=== PATIENT | male | born 1970 | race African-American/Black ===

== ENCOUNTER → 2022-07-03 14:19 | Outpatient (BNVA) | payer OTHER, SELFPAY | PROVIDERS: PCP Nurse Practitioner Family; Visit Provider Nurse Practitioner Family | DX: Z01.818 Encounter for other preprocedural examination (principal) ==

== ENCOUNTER 2022-11-07 10:24 | Outpatient (REF) | payer OTHER, SELFPAY ==
[2022-11-07 11:12] LABS: MANUAL DIFF FLAG NO
[2022-11-07 11:25] LABS: Appearance Urine Clear; Color Urine Yellow; Glucose Urine UA Negative (Negative); Leukocyte Esterase Urine Negative (Negative); Nitrite Urine Negative (Negative); PH 6.5 (5.0-9.0); Specific Gravity - Urine 1.025 (1.005-1.025); UMIC TRIGGER UACC YES; Urine Blood Negative (Negative); Urine Ketones Negative (Negative); Urine Protein 30 (1+) mg/dL (Neg-Trace)
[2022-11-07 11:30] LABS: Bacteria Urine None Seen (None Seen); Hyaline Casts Urine 0-2 /LPF (0-2); RBC Urine 0-2 /HPF (0-2); Squamous Epithelial Cell Urine 0-2 /HPF (0-2); WBC Urine 0-5 /HPF (0-5)
[2022-11-07 11:32] LABS: Basophils Absolute Auto 0.1 X10*3/uL (0.0-0.2); Basophils Percent Auto 2.4 % (0-2); Eosinophils Absolute Auto 0.2 X10*3/uL (0.0-0.4); Eosinophils Percent Auto 6.5 % (0-4); Hematocrit 38.5 % (42.0-52.0); Hemoglobin 12.5 g/dl (14.0-18.0); Lymphocytes Absolute Auto 1.4 X10*3/uL (1.2-4.9); Lymphocytes Percent Auto 41.2 % (20-40); Mean Corpuscular HGB Conc 32.5 g/dl (31.0-36.0); Mean Corpuscular Hemoglobin 23.5 pg (27.0-33.0); Mean Corpuscular Volume 72.4 fL (80.0-98.0); Mean Platelet Volume 9.1 fL (9.4-12.4); Monocytes Absolute Auto 0.3 X10*3/uL (0.1-1.2); Monocytes Percent Auto 7.7 % (2-11); Neutrophils Absolute Auto 1.4 x10*3/uL (2.0-8.3); Neutrophils Percent Auto 42.2 % (45-73); Platelet Count 178 X10*3/uL (160-400); Red Blood Count 5.32 X10*6/uL (4.60-5.80); Red Cell Distribution Width 15.1 % (11.0-16.0); White Blood Count 3.4 X10*3/uL (4.8-10.8)
[2022-11-07 11:59] LABS: Alanine Aminotransferase 62 U/L (0-40); Albumin Level 4.6 g/dL (3.5-5.0); Alkaline Phosphatase 82 U/L (39-117); Anion Gap 16 (12-20); Aspartate Amino Transferase 96 U/L (5-37); Bilirubin Total 0.5 mg/dL (0.0-1.0); Blood Urea Nitrogen 15 mg/dL (9-16); Calcium 9.4 mg/dL (8.4-10.2); Carbon Dioxide 28 mmol/L (22-29); Chloride 105 mmol/L (96-108); Cholesterol 243 mg/dL; Estimated Glomerular Filt Rate > 60; Glucose Fasting 108 mg/dL (60-99); HDL Cholesterol 68 mg/dL; LDL Cholesterol Calculated 108 mg/dl; Potassium 4.4 mmol/L (3.3-5.1); Sodium 145 mmol/L (135-145); Total Protein 8.2 g/dL (6.5-8.0); Triglycerides 337 mg/dL
[2022-11-07 12:15] LABS: Prostate Specific Antigen Scr 2.23 ng/mL (<0.05-4.0); TSH reflex Free T4 0.56 uIU/mL (0.32-4.0)
== END 2022-11-07 10:25 | disposition home or self-care (01) ==
LOC: HO.HMGCLDS 10:24
PROVIDERS: PCP Nurse Practitioner Family; Visit Provider Nurse Practitioner Family
DX: E78.5 Hyperlipidemia, unspecified (principal); I10 Essential (primary) hypertension; Z12.5 Encounter for screening for malignant neoplasm of prostate
CPT/HCPCS: 36415; 80053; 80061; 81001; 84153; 84443; 85025

== ENCOUNTER 2023-01-16 08:52 | Outpatient (AMB) | payer OTHER, SELFPAY ==
[2023-01-16 08:59] VITALS: BP 150/88; PULSE 81; O2SAT 96; BMI 25.0
--- NOTE | 2023-01-16 08:59 | A.OFFPC_ITS ---
Vital Signs 01/16/23 08:59 Height 5 ft 9 in Weight 169 lb 6 oz BMI 25.0 BP 150/88 H Blood Pressure Location Lt brachial Position Sitting Pulse 81 Pulse Source Pulse Oximeter Pulse Oximetry (%) 96 Oxygen Delivery Method Room Air Intake Visit Reasons: Med review, left wrist pain Allergies No Known Allergies Allergy (Verified 01/16/23 11:45) Medication List - Last Reconciled 01/16/23 by TONIE Bryant amlodipine 10 mg PO DAILY 90 days bisacodyl (Dulcolax (bisacodyl)) 10 mg (2 x 5 mg) PO ONCE 1 day cholecalciferol (vitamin D3) (Vitamin D3) 50 mcg PO DAILY docusate sodium 100 mg PO BEDTIME losartan 100 mg PO DAILY metoprolol succinate ER 50 mg PO DAILY polyethylene glycol 3350 (Miralax) 238 grams PO ONCE Tobacco use date assessed: 01/16/23 Dental Screening Dental Screen Date: 01/16/23 Did you have a dental visit in the last 12 months?: No Did you have a dental problem in the last 6 months where you did not have access to dental care?: No Was dental information given to patient?: Patient has dentist HPI Med review, left wrist pain HPI Details Pt was seen in the ER on 11/13 c/o alcohol withdrawal. He was given phenobarbital and a banana bag in the ER. Pt was admitted for further treatment. Pt was seen by addiction medicine who recommended he be d/c on naltrexone. Pt is not currently on naltrexone. He is still drinking excessively and reports that he is currently detoxing. Recommended pt go to the ER, unsure if he will. Will refer to addiction medicine. Pt also c/o left wrist pain. He reports having a previous xr, missing results. He denies any acute injury. ? gout. Will order xr. LVH noted on EKG. Will increased metoprolol from 50mg to 100mg. Denies chest pain, shortness of breath, and dizziness. [facility] Medical History (Updated 01/16/23 @ 09:26 by TONIE Bryant) Alcohol abuse Dyslipidemia Hypertension Social History Housing: Apartment Patient Tobacco Use Status: Former Tobacco user Quit Date: quit 33 years ago e-Cigarette/Vaping Use: Never Used Second Hand Smoke Exposure: No service: No Current occupational status: employed Current occupation: [employer] Current occupational exposures/hazards: No Cognitive needs: No Hearing needs: No Vision needs: No Review of Systems Const Reports as per HPI Physical exam (Primary Care) Vital Signs: Last Vital Signs Pulse 81 01/16/23 08:59 BP 150/88 H 01/16/23 08:59 Pulse Ox 96 01/16/23 08:59 Oxygen Delivery Method Room Air 01/16/23 08:59 BMI result Body Mass Index 25.0 Tobacco/Smoking Status: Tobacco use Status Tobacco use date assessed 01/16/23 01/16/23 09:04 Patient Tobacco Use Status Former Tobacco user 01/16/23 09:04 e-Cigarette/Vaping Use Never Used 01/16/23 09:04 Const General: cooperative Orientation/consciousness: patient oriented x3 Resp Effort & Inspection: normal respiratory effort Auscultation: clear to auscultation bilaterally Cardio Rate: regular rate Rhythm: regular rhythm Heart sounds: S1 normal heart sound present and S2 normal heart sound present Neuro General: patient oriented x3 Extrem Other: tremors of hands noted with arms extended. left wrist without swelling or erythema. able to flex and extend against resistance without difficulty/pain. unlar and radial deviation without pain Right lower extremity: no edema Left lower extremity: no edema Psych Appearance: grossly normal Mental Status: mental status grossly normal Speech and movement: Normal speech and movement present Affect: normal affect Attitude: cooperative Thought process: Normal thought process present Thought content: Normal thought content present Insight: Good insight present (Psych) Judgement: Good judgement present (Psych) Assessment and Plan Assessment & Plan (1) Alcohol abuse: Code(s): F10.10 - Alcohol abuse, uncomplicated Plan: Referred to addiction medicine, instructed to go to the ER if worsening symptoms/detox (2) Dyslipidemia: Code(s): E78.5 - Hyperlipidemia, unspecified (3) Hypertension: Code(s): I10 - Essential (primary) hypertension Plan: increasing BB from 50mg to 100mg (4) Left wrist pain: Code(s): M25.532 - Pain in left wrist Plan: XRs and check uric acid Plan The patient agreed to the use of a neuropsychology medical consultant for this encounter. Scribed for TONIE Patel by Yamila Perdomo neuropsychology medical consultant, on 01/16/2023 at 09:25 EST. Orders: Orders TSH reflex Free T4 Today E78.5 - Hyperlipidemia, unspecified, F10.10 - Alcohol abuse, uncomplicated, I10 - Essential (primary) hypertension Complete Blood Count Auto Diff Today E78.5 - Hyperlipidemia, unspecified, F10.10 - Alcohol abuse, uncomplicated, I10 - Essential (primary) hypertension UA CC w/rflx Micro + Cult Today E78.5 - Hyperlipidemia, unspecified, F10.10 - Alcohol abuse, uncomplicated, I10 - Essential (primary) hypertension Uric Acid Today M25.532 - Pain in left wrist Comprehensive Met. Panel Today F10.10 - Alcohol abuse, uncomplicated, I10 - Essential (primary) hypertension Referrals Addiction Medicine Referral F10.10 - Alcohol abuse, uncomplicated Medications: Changed From metoprolol succinate ER Schedule and KEEP PCP appt for more refills 50 mg PO DAILY 90 tabs 0RF To metoprolol succinate ER Schedule and KEEP PCP appt for more refills 100 mg PO DAILY 90 tabs 0RF Coding Level of Care Code Est Pt Level 3 (65707) Diagnoses Alcohol abuse F10.10 Dyslipidemia E78.5 Hypertension I10 Left wrist pain M25.532
== END 2023-01-16 10:02 | disposition home or self-care (01) ==
PROVIDERS: PCP Nurse Practitioner Family; Visit Provider Nurse Practitioner Family
DX: F10.10 Alcohol abuse, uncomplicated (principal); E78.5 Hyperlipidemia, unspecified; I10 Essential (primary) hypertension; M25.532 Pain in left wrist
CPT/HCPCS: 99213

== ENCOUNTER 2023-01-16 09:35 | Outpatient (REF) | payer OTHER, SELFPAY ==
--- NOTE | ~2023-01-16 | XR_ITS ---
EXAMINATION: XR WRIST, LEFT CLINICAL INFORMATION: Pain left wrist COMPARISON: None available. TECHNIQUE: PA, lateral, and oblique views of the left wrist. FINDINGS: The bones and soft tissues are normal. No fracture. Alignment is anatomic with normal joint spaces. No erosions or abnormal soft tissue calcifications. XR/XR wrist LT min 3V IMPRESSION: Normal left wrist.
[2023-01-16 11:14] LABS: MANUAL DIFF FLAG NO
[2023-01-16 11:47] LABS: Basophils Absolute Auto 0.1 X10*3/uL (0.0-0.2); Basophils Percent Auto 1.2 % (0-2); Eosinophils Absolute Auto 0.1 X10*3/uL (0.0-0.4); Eosinophils Percent Auto 3.4 % (0-4); Hematocrit 37.3 % (42.0-52.0); Hemoglobin 11.8 g/dl (14.0-18.0); Imm Gran Abs Auto 0.01 X10*3/uL (0.00-0.03); Imm Gran Pct Auto 0.2 % (0.0-0.4); Lymphocytes Absolute Auto 1.4 X10*3/uL (1.2-4.9); Lymphocytes Percent Auto 33.5 % (20-40); Mean Corpuscular HGB Conc 31.6 g/dl (31.0-36.0); Mean Platelet Volume 9.8 fL (9.4-12.4); Monocytes Absolute Auto 0.4 X10*3/uL (0.1-1.2); Monocytes Percent Auto 9.5 % (2-11); Neutrophils Absolute Auto 2.2 x10*3/uL (2.0-8.3); Neutrophils Percent Auto 52.2 % (45-73); Platelet Count 334 X10*3/uL (160-400); Red Blood Count 4.91 X10*6/uL (4.60-5.80); Red Cell Distribution Width 15.1 % (11.0-16.0); White Blood Count 4.1 X10*3/uL (4.8-10.8)
[2023-01-16 11:55] LABS: Appearance Urine Clear; Color Urine Yellow; Glucose Urine UA Negative (Negative); Leukocyte Esterase Urine Negative (Negative); Nitrite Urine Negative (Negative); PH 5.5 (5.0-9.0); Specific Gravity - Urine 1.025 (1.005-1.025); Urine Blood Negative (Negative); Urine Ketones Trace mg/dL (Negative); Urine Protein Negative (Neg-Trace)
[2023-01-16 12:31] LABS: Alanine Aminotransferase 33 U/L (0-40); Albumin Level 4.5 g/dL (3.5-5.0); Alkaline Phosphatase 76 U/L (39-117); Anion Gap 19 (12-20); Aspartate Amino Transferase 30 U/L (5-37); Bilirubin Total 0.3 mg/dL (0.0-1.0); Blood Urea Nitrogen 18 mg/dL (9-16); Calcium 9.7 mg/dL (8.4-10.2); Carbon Dioxide 22 mmol/L (22-29); Chloride 105 mmol/L (96-108); Estimated Glomerular Filt Rate > 60; Glucose Random 84 mg/dL (60-115); Potassium 3.8 mmol/L (3.3-5.1); Sodium 142 mmol/L (135-145); Total Protein 8.2 g/dL (6.5-8.0); Uric Acid 10.3 mg/dL (3.4-7.0)
[2023-01-16 12:48] LABS: TSH reflex Free T4 0.57 uIU/mL (0.32-4.0)
[2023-01-16 13:50] LABS: Iron 102 mcg/dL (45-160); Percent Iron Saturation 38 % (15-50); Total Iron Binding Capacity 267 mcg/dL (228-428); Unsaturated Iron Binding 165 ug/dL
[2023-01-16 14:10] LABS: Ferritin 210 ng/mL (20-250)
[2023-01-20 23:09] LABS: Hematocrit 37.2 % (38.5-50.0); Hemoglobin 11.9 g/dL (13.2-17.1); MCH 24.4 pg (27.0-33.0); MCV 76.4 fL (80.0-100.0); RBC 4.87 Million/uL (4.20-5.80); RDW 15.7 % (11.0-15.0)
== END 2023-01-16 09:36 | disposition home or self-care (01) ==
LOC: HO.HMGCX 09:35
PROVIDERS: PCP Nurse Practitioner Family; Visit Provider Nurse Practitioner Family
DX: F10.10 Alcohol abuse, uncomplicated (principal); E78.5 Hyperlipidemia, unspecified; I10 Essential (primary) hypertension; M25.532 Pain in left wrist; D64.9 Anemia, unspecified
CPT/HCPCS: 36415; 73110; 80053; 81003; 82728; 83020; 83540; 84443; 84550; 85014; 85018; 85025; 85041

== ENCOUNTER 2024-02-25 16:00 | Outpatient (AMB) | payer OTHER, SELFPAY ==
--- NOTE | 2024-02-25 16:01 | AM.OFFWIN_ITS ---
Intake Vital Signs 02/25/24 16:13 Height 5 ft 9 in Weight 172 lb BMI 25.4 BP 122/84 Blood Pressure Location Rt brachial Position Sitting Pulse 81 Pulse Source Pulse Oximeter Temp 97.8 F Temp Source Oral Pulse Oximetry (%) 98 Oxygen Delivery Method Room Air Intake Visit Reasons: EP High BP, headache, fatigue Intake Note: Pt c/o elevated BP, headaches and fatigue. Started 3 days ago Patient Tobacco Use Status: Former Tobacco user Allergies No Known Allergies Allergy (Verified 02/25/24 16:16) Do you need a note to return to daycare/school/sports/work: Yes HPI HPI Comments History of Present Illness Details He presents to office with complaint of BP He was supposed to see PCP but arrived late so he came to the office to see UC He admits to fatigue; gets up early at 4am Admits to feeling sluggish; goes to bed at 1030/11pm and up at 4. Total of 5 hours per night Ongoing x 3 days + slight headache He has been taking BP medicine at home; doesnt take readings at home No other medicines at home No recent falls, syncope, HT [employer]ining [employer] CP or SOB + poor appetite, but staying hydrated No abdominal pain or urine/bowel complaint + congestion without ST or cough Slight body aches He denies any improving factors PFSH Medical History (Updated 02/25/24 @ 16:34 by Kirsten Lombardo PA-C) Alcohol abuse Dyslipidemia Hypertension Social History Housing: Apartment Patient Tobacco Use Status: Former Tobacco user e-Cigarette/Vaping Use: Never Used Second Hand Smoke Exposure: No service: No Current occupational status: employed Current occupation: [employer] Current occupational exposures/hazards: No Cognitive needs: No Hearing needs: No Vision needs: No Review of Systems Const Denies chills, Reports fatigue, Denies fever(s), Denies headache(s), Reports poor appetite, Denies weight gain and Denies weight loss Eyes Denies blurry vision and Denies change in vision ENT Denies dizziness, Denies headache(s), Denies nasal discharge and Denies sore throat Card Denies chest pain, Denies syncope and Denies dyspnea Resp Denies cough and Denies dyspnea GI Denies abdominal pain, Denies change in bowel habits, Denies change in stool character, Denies nausea and Denies vomiting Denies dysuria Musc Denies myalgias (denies joint ache) Skin/Breast Denies rash Neuro Denies dizziness, Denies syncope and Denies headache(s) Endo Reports fatigue Physical Exam Vital Signs: Last Vital Signs Temp 97.8 F 02/25/24 16:13 Pulse 81 02/25/24 16:13 BP 122/84 02/25/24 16:13 Pulse Ox 98 02/25/24 16:13 Oxygen Delivery Method Room Air 02/25/24 16:13 BMI result Body Mass Index 25.4 General: Non-toxic, NAD. Speaking full sentences. Skin: Warm dry throughout Eye: EOMI HENT: Airway patent. Uvula midline. No pharyngeal erythema or edema. No [employer]. Bilateral canals clear. TM non-erythematous, non-bulging. No TM perforation or hemotympanum noted. Respiratory: CTA bilaterally. No wheezes, rales or rhonchi Cardiac: RRR. No murmur MSK: Full ROM extremities. Neurology: A/O x 3. CN 2-12 grossly intact. Negative pronator drift. No aphasia or facial droop. Gait without abnormality Psych: Good mood and affect Assessment & Plan Assessment & Plan (1) Fatigue: Code(s): R53.83 - Other fatigue Qualifiers: Fatigue type: unspecified Qualified Code(s): R53.83 - Other fatigue Plan: Patient seen and evaluated. has not had baseline labs in one year BP controlled and vitals stable Discussed sleep hygeine Labs ordered to rule out etiology like anemia, electrolyte inbalance etc Patient gave verbal understanding and had no additional questions or concerns at time of discharge All questions answered Orders: Orders Complete Blood Count Auto Diff Today R53.83 - Other fatigue TSH reflex Free T4 Today R53.83 - Other fatigue Basic Metabolic Panel Today R53.83 - Other fatigue Coding Level of Care Code Est Pt Level 3 (86309) Diagnoses Fatigue, unspecified type R53.83 Fatigue type: unspecified
[2024-02-25 16:13] VITALS: BP 122/84; PULSE 81; TEMP 36.6; O2SAT 98; BMI 25.4
== END 2024-02-25 16:31 | disposition home or self-care (01) ==
PROVIDERS: PCP Nurse Practitioner Family; Visit Provider Physician Assistant
DX: R53.83 Other fatigue (principal)
CPT/HCPCS: 99213

== ENCOUNTER 2024-04-05 11:16 | Outpatient (AMB) | payer OTHER, SELFPAY ==
[2024-04-05 12:24] VITALS: BP 112/80; PULSE 75; O2SAT 97; BMI 25.6
--- NOTE | 2024-04-05 12:24 | MHC.OFFWIV ---
Intake Vital Signs 04/05/24 12:24 Height 5 ft 9 in Weight 173 lb 2 oz BMI 25.6 BP 112/80 Blood Pressure Location Rt brachial Position Sitting Pulse 75 Pulse Source Pulse Oximeter Pulse Oximetry (%) 97 Oxygen Delivery Method Room Air Intake Visit Reasons: EP-rt foot pain Intake Note: Pt is here today for RT foot pain, pt states been ongoing swelling and thinks its an infection. Patient Tobacco Use Status: Former Tobacco user Allergies No Known Allergies Allergy (Verified 04/05/24 12:29) Do you need a note to return to daycare/school/sports/work: Yes HPI HPI Comments History of Present Illness Details Patient is a 53-year-old male complaining of right foot pain. He tells me specifically that it is the 2nd digit on his right toe, the base is very painful and a little bit swollen. He tells me it is worse after he eats steak lobster and shrimp which he ate over the weekend. He also tells me he likes to ?democrat ?so he is drinking beer as well. He tells me he does have a history of gout. [facility] Medical History (Updated 04/05/24 @ 13:11 by Juliet Irene PA-C) Alcohol abuse Dyslipidemia Hypertension Social History Housing: Apartment Patient Tobacco Use Status: Former Tobacco user e-Cigarette/Vaping Use: Never Used Second Hand Smoke Exposure: No service: No Current occupational status: employed Current occupation: [employer] Current occupational exposures/hazards: No Cognitive needs: No Hearing needs: No Vision needs: No Review of Systems Const All systems reviewed & are unremarkable except as noted in HPI and below Physical Exam Vital Signs: Last Vital Signs Pulse 75 04/05/24 12:24 BP 112/80 04/05/24 12:24 Pulse Ox 97 04/05/24 12:24 Oxygen Delivery Method Room Air 04/05/24 12:24 BMI result Body Mass Index 25.6 Const General: cooperative, healthy appearing, comfortable and no acute distress Orientation/consciousness: patient oriented x3 HEENT Head: Yes normal to inspection General nose exam: Normal external nose present Face and sinus: Yes normal facial exam Eyes General: appearance normal, both eyes and all related structures Neck Neck: Yes normal visual inspection Resp Effort & Inspection: normal respiratory effort and able to speak in complete sentences Neuro General: patient oriented x3 Extrem Other: exquisite tenderness, erythema and swelling of right foot second toe joint, full ROM, normal capillary refill; no ecchymosis, no signs of infection noted Assessment & Plan Assessment & Plan (1) Gout flare: Code(s): M10.9 - Gout, unspecified Qualifiers: Gout site: toe Gout etiology: other secondary cause Laterality: right Qualified Code(s): M10.471 - Other secondary gout, right ankle and foot Plan: Based on HPI and physical exam, likely a gout flare. Sent colchicine to patient's pharmacy. Patient also requesting refill on his metoprolol, sent note to his PCP for metoprolol refill Plan see above Medications: New colchicine On day 1, take 2 tablets followed by 1 tablet 1 hour later. Do not exceed 3 tablets in 24 hours. On day 2 and 3, take 1 tablet every 12 hours. 0.6 mg PO DAILY 7 tabs 0RF Coding Level of Care Code Est Pt Level 3 (66890) Diagnoses Acute gout due to other secondary cause involving toe of right foot M10.471 Gout site: toe Gout etiology: other secondary cause Laterality: right
== END 2024-04-05 13:12 | disposition home or self-care (01) ==
PROVIDERS: PCP Nurse Practitioner Family; Visit Provider Physician Assistant
DX: M10.471 Other secondary gout, right ankle and foot (principal)

== ENCOUNTER → 2024-04-05 11:16 | Outpatient (BNVA) | payer OTHER, SELFPAY | PROVIDERS: PCP Nurse Practitioner Family; Visit Provider Physician Assistant ==

== ENCOUNTER 2024-04-05 13:14 | Outpatient (REF) | payer OTHER, SELFPAY ==
[2024-04-05 16:38] LABS: MANUAL DIFF FLAG NO
[2024-04-05 16:51] LABS: Basophils Absolute Auto 0.1 X10*3/uL (0.0-0.2); Basophils Percent Auto 1.5 % (0-2); Eosinophils Absolute Auto 0.1 X10*3/uL (0.0-0.4); Hematocrit 38.2 % (42.0-52.0); Hemoglobin 12.5 g/dl (14.0-18.0); Imm Gran Abs Auto 0.01 X10*3/uL (0.00-0.03); Imm Gran Pct Auto 0.2 % (0.0-0.4); Lymphocytes Absolute Auto 2.2 X10*3/uL (1.2-4.9); Lymphocytes Percent Auto 45.7 % (20-40); Mean Corpuscular HGB Conc 32.7 g/dl (31.0-36.0); Mean Corpuscular Hemoglobin 23.9 pg (27.0-33.0); Mean Platelet Volume 10.3 fL (9.4-12.4); Monocytes Absolute Auto 0.3 X10*3/uL (0.1-1.2); Monocytes Percent Auto 5.2 % (2-11); Neutrophils Absolute Auto 2.2 x10*3/uL (2.0-8.3); Neutrophils Percent Auto 46.4 % (45-73); Platelet Count 222 X10*3/uL (160-400); Red Blood Count 5.23 X10*6/uL (4.60-5.80); Red Cell Distribution Width 15.5 % (11.0-16.0); White Blood Count 4.8 X10*3/uL (4.8-10.8)
[2024-04-05 17:11] LABS: Anion Gap 16 (12-20); Blood Urea Nitrogen 14 mg/dL (9-16); Calcium 9.3 mg/dL (8.4-10.2); Carbon Dioxide 25 mmol/L (22-29); Chloride 105 mmol/L (96-108); Estimated Glomerular Filt Rate > 60; Glucose Random 104 mg/dL (60-115); Potassium 4.2 mmol/L (3.3-5.1); Sodium 142 mmol/L (135-145)
[2024-04-05 17:19] LABS: TSH reflex Free T4 0.46 uIU/mL (0.32-4.0)
== END 2024-04-05 13:15 | disposition home or self-care (01) ==
LOC: HO.HMGCLDS 13:14
PROVIDERS: Visit Provider Physician Assistant
DX: R53.83 Other fatigue (principal)
CPT/HCPCS: 36415; 80048; 84443; 85025

== ENCOUNTER 2024-09-01 09:10 | Outpatient (AMB) | payer OTHER, SELFPAY ==
[2024-09-01 09:41] VITALS: BP 130/90; PULSE 96; TEMP 36.7; O2SAT 95; BMI 24.8
--- NOTE | 2024-09-01 09:41 | MHC.OFFWIV ---
Intake Vital Signs 09/01/24 09:41 Height 5 ft 9 in Weight 168 lb 4 oz BMI 24.8 BP 130/90 H Blood Pressure Location Lt brachial Position Sitting Pulse 96 Pulse Source Pulse Oximeter Temp 98.0 F Temp Source Oral Pulse Oximetry (%) 95 Oxygen Delivery Method Room Air Intake Visit Reasons: EP Popped wrist bone on RT hand Intake Note: Pt presents to the office today for c/o right hand pain/ bump on wrist. Pt states the bump will swell up and then go back down x1 year. Pt states he lifts all day at work. Patient Tobacco Use Status: Former Tobacco user Allergies No Known Allergies Allergy (Verified 09/01/24 09:43) Medication List - Last Reconciled 09/01/24 by Betty Adrian MD amlodipine 10 mg PO DAILY docusate sodium 100 mg PO BEDTIME losartan 100 mg PO DAILY metoprolol succinate ER 100 mg PO DAILY HPI EP Popped wrist bone on RT hand HPI Details History - The patient is a 53-year-old male presenting with recurrent swelling and discomfort in the right wrist. - Symptoms have persisted for over a year with intermittent enlargement. - Swelling and associated flame-like heat worsen with wrist use, notably due to occupational repetitive actions. - Limited wrist movement due to discomfort, though range of motion remains intact. - Occupational demands include heavy and frequent lifting, implicated in symptom exacerbation. - No imaging studies have been performed to date. Problem List - Recurrent swelling in the right wrist - Possible tenosynovitis - ganglion cyst Patient Instructions - Keep the affected right wrist elevated when possible to reduce swelling. - Avoid using the wrist if it is tender. - Consider taking a week off work to prevent further aggravation of symptoms. - Undergo an x-ray examination as ordered to further assess the condition. - Consult with an mass spectrometry specialist if surgical removal is considered necessary. Review of Systems - General: No fever no chills - Neurological: No headaches no dizziness - Ear nose throat: No sore throat no hearing difficulty no ear pain - Cardiovascular: No syncope, no chest pain, no palpitations - Gastrointestinal: No nausea vomiting or diarrhea Physical Exam General: No acute distress HEENT: No acute findings Neck: Supple Respiratory system: Able to talk in full sentences, no audible wheeze cardiovascular: S1-S2 regular in rate and rhythm Extremities: Swelling in the right wrist, full range of motion but with pain PATIENT FLOW COORDINATOR: Alert awake oriented x3 motor sensory intact Skin: Normal turgor PFSH Medical History Alcohol abuse Dyslipidemia Hypertension Social History Housing: Apartment Patient Tobacco Use Status: Former Tobacco user e-Cigarette/Vaping Use: Never Used Second Hand Smoke Exposure: No service: No Current occupational status: employed Current occupation: [employer] Current occupational exposures/hazards: No Cognitive needs: No Hearing needs: No Vision needs: No Physical Exam Vital Signs: Last Vital Signs Temp 98.0 F 09/01/24 09:41 Pulse 96 09/01/24 09:41 BP 130/90 H 09/01/24 09:41 Pulse Ox 95 09/01/24 09:41 Oxygen Delivery Method Room Air 09/01/24 09:41 BMI result Body Mass Index 24.8 Assessment & Plan Assessment & Plan (1) Ganglion cyst of tendon sheath of right hand: Code(s): M67.441 - Ganglion, right hand Plan History - The patient is a 53-year-old male presenting with recurrent swelling and discomfort in the right wrist. - Symptoms have persisted for over a year with intermittent enlargement. - Swelling and associated flame-like heat worsen with wrist use, notably due to occupational repetitive actions. - Limited wrist movement due to discomfort, though range of motion remains intact. - Occupational demands include heavy and frequent lifting, implicated in symptom exacerbation. - No imaging studies have been performed to date. Problem List - Recurrent swelling in the right wrist - Possible tenosynovitis - ganglion cyst Patient Instructions - Keep the affected right wrist elevated when possible to reduce swelling. - Avoid using the wrist if it is tender. - Consider taking a week off work to prevent further aggravation of symptoms. - Undergo an x-ray examination as ordered to further assess the condition. - Consult with an mass spectrometry specialist if surgical removal is considered necessary. Orders: Referrals Orthopedics Referral M67.441 - Ganglion, right hand Coding Level of Care Code Est Pt Level 3 (47828) Diagnoses Ganglion cyst of tendon sheath of right hand M67.441
--- OUTSIDE RECORDS SUMMARY | 2024-09-01 10:00 | XMS_ITS | Clinical Summary ---
Author Organization [facility] Address [address] [place] [address] Care Team Providers Care Rn Iv Therapy Name Role Phone Unavailable Primary Care Provider Unavailabl e Surgical History Surgery Date Site/Laterality Comments KNEE SURGERY PROCEDURE: HISTORICAL KNEE SURGERY; COMMENT: left knee fluid was drained Medical History Medical History Date Comments HTN (hypertension) DX:HTN (hyper tension) Family History Medical History Relation Name Comments Diabetes Maternal Grandfather Relation Name Status Comments Father Alive Maternal Grandfather Mother Alive Social History Tobacco Use Types Packs/Day Years Used Date Smoking Tobacco: Former Smokeless Tobacco: Never Alcohol Use Standard Drinks/Week Comments Yes 0 (1 standard drink = 0.6 oz pur e alcohol) Sex and Gender Information Value Date Recorded Sex Assigned at Not on file Legal Sex Male 12:10 PM EST Gender Identity Not on file Sexual Orientation Not on file Obstetrics History Plan of Treatment Health Maintenance Due Date Last Done Comments DTaP,Tdap,and Td Vaccines (1 - Tdap) 10/09/1990 Hepatitis B Vaccines (1 of 3 - 19+ 3-dose series) 10/09/1990 Pneumococcal Vaccine: 50+ Ye ars (1 of 1 - PCV) 10/09/2021 Zoster Vaccines (1 of 2) 10/09/2021 Cholesterol Screening (Lipid Panel) 05/14/2022 Colorectal Cancer Screening: Colonoscopy 05/14/2022 Depression Screening 05/14/2022 HIV Screening 05/14/2022 Hepatitis C Screening 05/14/2022 Social Influencers of Health Screening 05/14/2022 COVID-19 Vaccine (1 - 2023-2 5 season) 2024 Influenza Vaccine (#1) 2024 HIB Vaccines Aged Out No longer eligi ble based on patient's age to complete this topic HPV Vaccines Aged Out No longer eligi ble based on patient's age to complete this topic Hepatitis A Vaccines Aged Out No long er eligible based on patient's age to complete this topic IPV Vaccines Aged Out No longer eligi ble based on patient's age to complete this topic MMR Vaccines Aged Out No longer eligi ble based on patient's age to complete this topic Meningococcal ACWY Vaccine Aged Out N o longer eligible based on patient's age to complete this topic Meningococcal B Vacine Aged Out No lo nger eligible based on patient's age to complete this topic Pneumococcal Vaccine: Pediat rics (0 to 5 Years) and At-Risk Patients (6 to 64 Years) Aged Out No longer eligible b ased on patient's age to complete this topic RSV Immunization Patients Un nazanin 20 months Aged Out No longer eligible b ased on patient's age to complete this topic Varicella Vaccines Aged Out No longer eligible based on patient's age to complete this topic Advance Directives Documents on File Type Date Recorded Patient Forms Analyst Expl anation Health Care Decision (hx) 11/16/2022 AD BYNUM DIRECTIVE Health Care Decision (hx) 11/16/2022 AD BYNUM DIRECTIVE
== END 2024-09-01 10:03 | disposition home or self-care (01) ==
PROVIDERS: PCP Nurse Practitioner Family; Visit Provider Internal Medicine
DX: M67.441 Ganglion, right hand (principal)

== ENCOUNTER 2024-09-01 09:10 | Outpatient (REF) | payer OTHER, SELFPAY ==
--- NOTE | ~2024-09-01 | XR_ITS ---
EXAMINATION: XR HAND 3 OR MORE VIEWS RIGHT, XR WRIST 3 OR MORE VIEWS RIGHT HISTORY: M67.441 - Ganglion, right hand COMPARISON: There are no prior studies available for comparison. FINDINGS: Six views of the right hand and wrist are submitted. Osseous mineralization is normal. There is no fracture or dislocation. 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 There is mild soft tissue swelling over the ulnar styloid. XR/XR hand RT min 3V IMPRESSION: Mild soft tissue swelling over the ulnar styloid. 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 Electronically signed by: Jeff Fernandez MD 09/02/2024 07:22 AM EDT
--- NOTE | ~2024-09-01 | XR_ITS ---
EXAMINATION: XR HAND 3 OR MORE VIEWS RIGHT, XR WRIST 3 OR MORE VIEWS RIGHT HISTORY: M67.441 - Ganglion, right hand COMPARISON: There are no prior studies available for comparison. FINDINGS: Six views of the right hand and wrist are submitted. Osseous mineralization is normal. There is no fracture or dislocation. 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 There is mild soft tissue swelling over the ulnar styloid. XR/XR wrist RT min 3V IMPRESSION: Mild soft tissue swelling over the ulnar styloid. 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 Electronically signed by: Jeff Fernandez MD 09/02/2024 07:22 AM EDT
== END 2024-09-01 09:11 | disposition home or self-care (01) ==
LOC: HO.HMGCX 09:10
PROVIDERS: PCP Nurse Practitioner Family; Visit Provider Internal Medicine
DX: M67.441 Ganglion, right hand (principal)
CPT/HCPCS: 73110; 73130

== ENCOUNTER → 2024-09-01 10:08 | Outpatient (BNV) | payer OTHER, SELFPAY | PROVIDERS: PCP Nurse Practitioner Family; Visit Provider Radiology Diagnostic Radiology | DX: M67.441 Ganglion, right hand (principal); R22.31 Localized swelling, mass and lump, right upper limb; M19.041 Primary osteoarthritis, right hand | CPT/HCPCS: 73110; 73130 ==

== ENCOUNTER 2024-10-13 09:12 | Outpatient (AMB) | payer OTHER, SELFPAY ==
[2024-10-13 09:20] VITALS: BP 120/80; PULSE 88; TEMP 36.7; O2SAT 98; BMI 24.4
--- NOTE | 2024-10-13 09:20 | A.OFFPC_ITS ---
Vital Signs 10/13/24 09:20 Height 5 ft 9 in Weight 165 lb BMI 24.4 BP 120/80 Blood Pressure Location Lt brachial Position Sitting Pulse 88 Pulse Source Pulse Oximeter Temp 98.0 F Temp Source Oral Pulse Oximetry (%) 98 Oxygen Delivery Method Room Air Intake Visit Reasons: Annual PE Scalp Specialist Required: No Accompanied by: Self / Same As Patient Allergies No Known Allergies Allergy (Verified 10/13/24 09:20) Tobacco use date assessed: 10/13/24 Dental Screening Dental Screen Date: 10/13/24 Did you have a dental visit in the last 12 months?: Yes Did you have a dental problem in the last 6 months where you did not have access to dental care?: No Was dental information given to patient?: Patient has dentist HPI Annual PE HPI Details History of Present Illness The patient is a 54 year old male presenting with a request for colorectal cancer screening. Previously apprehensive, he did not undergo a colonoscopy after his initial consultation, influenced by a family member's prior complication with the procedure. He currently reports no gastrointestinal symptoms, such as abdominal pain, blood in stool, constipation, or diarrhea. He prefers the non-invasive Cologuard test for colorectal cancer screening. HTN/dyslipidemia: stable BP on medication. labs ordered, encouraged to get drawn in the near future. denies any cp, sob, dizziness, ALFRED, blurred vision. Additionally, the patient declines a digital rectal exam, yet is amenable to PSA testing as part of prostate health evaluation. He mentions infrequent alcohol consumption, limited by legal probationary measures. Health Maintenance - Cologuard test ordered for colorectal cancer screening. - [facility] Social History - The patient is currently on probation, limiting his alcohol intake frequency. - He expresses nervousness regarding med ical procedures due to family history of complications. Review of Systems - Cardiovascular: Denies chest pain, gianna rtness of breath. - Respiratory: Denies symptoms. - Gastrointestinal: Denies abdominal paulo n, blood in stool, constipation, and diarrhea. - General: Denies fever and chills. Physical Exam General: Cooperative, healthy appearing, comfortable, no acute distress and well developed Orientation: Patient oriented x3 Limitations: No limitations Head: Normal to inspection Ears: Hearing grossly normal bilaterally Nose: Normal external nose present Face and sinus: Normal facial exam Eyes: Appearance normal, both eyes and all related structures Neck: Normal visual inspection and Yes full ROM Respiratory: Normal respiratory effort and able to speak in complete sentences. Clear to auscultation bilaterally Cardiovascular: Regular rate and rhythm. Normal S1 and S2 GI: Normal to inspection. Soft to palpation and nontender Skin: No rashes or lesions noted Neuro: Patient oriented x3 Extremities: Normal to inspection Results Plan The patient will be screened for colorectal cancer using the Cologuard test based on his preference and anxiety regarding colonoscopy. A PSA test is also planned due to the patient's reluctance for a digital rectal examination. Awareness of his limited alcohol consumption due to legal circumstances will be maintained. Discussion Notes I discussed the available colorectal cancer screening options with the patient, focusing on his hesitancy about colonoscopy and family history of procedural complications. We agreed that the Cologuard test offers a suitable non-invasive alternative. Risks, benefits, and the nature of the test were explained, and the patient consented. We also discussed PSA testing for prostate health given his preference to avoid a rectal exam. He is on probation, which influences his alcohol consumption, and this was taken into account when advising lifestyle considerations. Patient Instructions - Schedule your Cologuard test as soon a s possible. - [facility] blood test [facility]. - Limit alcohol use as discussed. - Follow up if you notice any gastrointe stinal symptoms or changes. [facility] Medical History Alcohol abuse Dyslipidemia Hypertension Surgical History No pertinent past surgical history Social History Housing: Apartment Patient Tobacco Use Status: Former Tobacco user e-Cigarette/Vaping Use: Never Used Second Hand Smoke Exposure: No service: No Current occupational status: employed Current occupation: [employer] Current occupational exposures/hazards: No Cognitive needs: No Hearing needs: No Vision needs: No Questionnaire PHQ-9 Over the last 2 weeks, how often have you been bothered by any of the following problems? 1. Little interest or pleasure in doing things: not at all 2. Feeling down, depressed, or hopeless: not at all 3. Trouble falling or staying asleep, or sleeping too much: not at all 4. Feeling tired or having little energy: not at all 5. Poor appetite or overeating: not at all 6. Feeling bad about yourself - or that you are a failure or have let yourself or your family down: not at all 7. Trouble concentrating on things, such as reading the newspaper or watching television: not at all 8. Moving or speaking so slowly that other people could have noticed. Or the opposite - being so fidgety or restless that you have been moving around a lot more than usual: not at all 9. Thoughts that you would be better off or of hurting yourself in some way: not at all Total score: 0 Depression Screening Interpretation: Negative Depression Screening Done: Yes 70679 - PHQ-9 Billing: Yes Source: Developed by Drs. Jeff Cooney, Liza Marrero, Gilbert Valverde and colleagues, with an educational timo from [employer]. Thrive Questionnaire Date Thrive assessed: 10/13/24 I am a: Patient What is your living situation today?: I have a steady place to live Within the past 12 months, did the food you bought not last and you didn't have the money to get more?: Never true Within the past 12 months, did you worry whether your food would run out before you got money to buy more?: Never true Do you have trouble paying for medicines?: No Do you have trouble getting transportation to medical appointments?: No Do you have trouble paying your heating and electricity bill?: No Do you have trouble taking care of your child, family member or friend?: No Do you have trouble with day-to-day activities such as bathing, preparing meals, shopping, managing finances, etc.?: No Are you currently unemployed and looking for a job?: No Are you interested in more education?: No Please select the resources that you would like help with: None Currently or been in a relationship where the following occur: No concerns reported THRIVE Score: 0 AUDIT C Alcohol Use Questionnaire (AUDIT-C) 1. How often do you have a drink containing alcohol?: Never 3. How often do you have six or more drinks on one occasion?: Never Total Score: 0 Score Reviewed/Action Taken: Yes ESTHELA-7 AMB Questionnaire ESTHELA-7 Date ESTHELA - 7 assessed: 10/13/24 Feeling nervous, anxious, or on edge: 0 = Not at all Not being able to stop or control worryin = Not at all Worrying too much about different things: 0 = Not at all Trouble relaxin = Not at all Being so restless that it is hard to sit still: 0 = Not at all Becoming easily annoyed or irritable: 0 = Not at all Feeling afraid as if something awful might happen: 0 = Not at all Total ESTHELA-7 score (0-4 normal; 5-9 mild; 10-14 moderate; 15-21 severe): 0 Source: Developed by Drs. Jeff Cooney, Liza Marrero, Gilbert Valverde and colleagues, with an educational timo from [employer]. ESTHELA-7 Assessment Billing ESTHELA-7 Assessment Tool: ESTHELA-7 Assessment 64984 Physical exam (Primary Care) Vital Signs: Last Vital Signs Temp 98.0 F 10/13/24 09:20 Pulse 88 10/13/24 09:20 BP 120/80 10/13/24 09:20 Pulse Ox 98 10/13/24 09:20 Oxygen Delivery Method Room Air 10/13/24 09:20 BMI result Body Mass Index 24.4 Tobacco/Smoking Status: Tobacco use Status Tobacco use date assessed 10/13/24 10/13/24 09:22 Patient Tobacco Use Status Former Tobacco user 10/13/24 09:22 e-Cigarette/Vaping Use Never Used 10/13/24 09:22 PHQ-9: PHQ-9 Score PHQ-9: Total score 0 10/13/24 09:27 Depression Screening Interpretation: Negative Thrive Assessment: Date of Thrive Assessment Date Thrive assessed 10/13/24 10/13/24 09:22 Currently or been in a relationship where the following occur: No concerns reported Coding Level of Care Code Est Pt Level 3 (04164) Est Pt Prev Care 40-64y(14429) Diagnoses Hypertension I10 Dyslipidemia E78.5 Physical exam Z00.00 Additional Codes ESTHELA-7 Assessment Billing - ESTHELA-7 Assessment Tool: ESTHELA-7 Assessment 72577 ([id number]) PHQ-9 - 97993 - PHQ-9 Billing: Yes ([id number]) Assessment & Plan Assessment & Plan (1) Hypertension: Code(s): I10 - Essential (primary) hypertension Category: Medical (2) Dyslipidemia: Code(s): E78.5 - Hyperlipidemia, unspecified Category: Medical (3) Physical exam: Code(s): Z00.00 - Encounter for general adult medical examination without abnormal findings Category: Medical Plan . Orders: Referrals Cologuard Test Z12.11 - Encounter for screening for malignant neoplasm of colon, Z12.12 - Encounter for screening for malignant neoplasm of rectum
--- OUTSIDE RECORDS SUMMARY | 2024-10-13 09:45 | XMS_ITS | Clinical Summary ---
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
== END 2024-10-13 09:52 | disposition home or self-care (01) ==
LOC: HO.HMCC 09:13
PROVIDERS: PCP Nurse Practitioner Family; Visit Provider Nurse Practitioner Family
DX: Z00.00 Encounter for general adult medical examination without abnormal findings (principal); I10 Essential (primary) hypertension; E78.5 Hyperlipidemia, unspecified

== ENCOUNTER → 2024-10-13 09:12 | Outpatient (BNVA) | payer OTHER, SELFPAY | PROVIDERS: PCP Nurse Practitioner Family; Visit Provider Nurse Practitioner Family | DX: Z00.00 Encounter for general adult medical examination without abnormal findings (principal); I10 Essential (primary) hypertension; E78.5 Hyperlipidemia, unspecified | CPT/HCPCS: 96127 ==

== ENCOUNTER 2024-11-02 14:53 | Outpatient (REF) | payer OTHER, SELFPAY ==
--- OUTSIDE RECORDS SUMMARY | 2024-11-02 16:03 | XMS_ITS | Clinical Summary ---
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
[2024-11-02 16:22] LABS: Appearance Urine Clear; Color Urine Yellow; Glucose Urine UA Negative (Negative); Leukocyte Esterase Urine Negative (Negative); Nitrite Urine Negative (Negative); Urine Blood Negative (Negative); Urine Ketones Negative (Negative); Urine Protein Trace mg/dL (Neg-Trace)
[2024-11-02 16:23] LABS: MANUAL DIFF FLAG NO
[2024-11-02 16:35] LABS: Basophils Absolute Auto 0.1 X10*3/uL (0.0-0.2); Eosinophils Absolute Auto 0.1 X10*3/uL (0.0-0.4); Eosinophils Percent Auto 2.6 % (0-4); Hematocrit 33.8 % (42.0-52.0); Hemoglobin 11.4 g/dl (14.0-18.0); Lymphocytes Percent Auto 33.8 % (20-40); Mean Corpuscular HGB Conc 33.7 g/dl (31.0-36.0); Mean Corpuscular Hemoglobin 24.6 pg (27.0-33.0); Mean Platelet Volume 9.9 fL (9.4-12.4); Monocytes Absolute Auto 0.3 X10*3/uL (0.1-1.2); Monocytes Percent Auto 9.5 % (2-11); Neutrophils Absolute Auto 1.6 x10*3/uL (2.0-8.3); Neutrophils Percent Auto 51.1 % (45-73); Platelet Count 141 X10*3/uL (160-400); Red Blood Count 4.63 X10*6/uL (4.60-5.80); Red Cell Distribution Width 15.5 % (11.0-16.0); White Blood Count 3.1 X10*3/uL (4.8-10.8)
[2024-11-02 17:06] LABS: Alanine Aminotransferase 69 U/L (0-40); Albumin Level 4.7 g/dL (3.5-5.0); Alkaline Phosphatase 88 U/L (39-117); Anion Gap 14 (12-20); Aspartate Amino Transferase 124 U/L (5-37); Bilirubin Total 0.3 mg/dL (0.0-1.0); Blood Urea Nitrogen 12 mg/dL (9-16); Calcium 9.1 mg/dL (8.4-10.2); Carbon Dioxide 24 mmol/L (22-29); Chloride 104 mmol/L (96-108); Cholesterol 290 mg/dL (<200); Estimated Glomerular Filt Rate > 60; Glucose Fasting 116 mg/dL (60-99); HDL Cholesterol 107 mg/dL (>40); LDL Cholesterol Calculated 151 mg/dL (<100); Potassium 4.1 mmol/L (3.3-5.1); Sodium 138 mmol/L (135-145); Total Protein 8.7 g/dL (6.5-8.0); Triglycerides 164 mg/dL (<150)
[2024-11-02 17:08] LABS: Prostate Specific Antigen Scr 1.98 ng/mL (<0.05-4.0)
[2024-11-02 17:15] LABS: TSH reflex Free T4 0.92 uIU/mL (0.32-4.0); Uric Acid 9.8 mg/dL (3.4-7.0)
== END 2024-11-02 14:54 | disposition home or self-care (01) ==
LOC: HO.HMGCLDS 14:53
PROVIDERS: PCP Nurse Practitioner Family; Visit Provider Nurse Practitioner Family
DX: I10 Essential (primary) hypertension (principal); E78.5 Hyperlipidemia, unspecified; Z12.5 Encounter for screening for malignant neoplasm of prostate; M10.471 Other secondary gout, right ankle and foot
CPT/HCPCS: 36415; 80053; 80061; 81003; 84153; 84443; 84550; 85025

== ENCOUNTER 2024-12-01 15:17 | Outpatient (REF) | payer OTHER, SELFPAY ==
--- NOTE | ~2024-12-01 | XR_ITS ---
EXAMINATION: XR HAND, LEFT CLINICAL INFORMATION: M79.642 - Pain in left hand COMPARISON: None available. TECHNIQUE: PA, lateral, and oblique views of the left hand. FINDINGS: Joint spaces are preserved. There are no erosions. There are no osteophytes. There is no joint diastases. No fracture is seen. XR/XR hand LT min 3V IMPRESSION: Unremarkable left hand Electronically signed by: Dom Duarte MD 12/01/2024 04:20 PM EDT
== END 2024-12-01 15:18 | disposition home or self-care (01) ==
LOC: HO.HMGCX 15:17
PROVIDERS: PCP Nurse Practitioner Family; Visit Provider Physician Assistant Medical
DX: M79.642 Pain in left hand (principal)
CPT/HCPCS: 73130

== ENCOUNTER 2024-12-01 15:17 | Outpatient (AMB) | payer OTHER, SELFPAY ==
[2024-12-01 15:19] VITALS: BP 114/76; PULSE 97; TEMP 37.3; O2SAT 100; BMI 24.1
--- NOTE | 2024-12-01 15:19 | AM.OFFWIN_ITS ---
Intake Vital Signs 12/01/24 15:19 Height 5 ft 9 in Weight 163 lb 6 oz BMI 24.1 BP 114/76 Blood Pressure Location Rt brachial Position Sitting Pulse 97 Pulse Source Pulse Oximeter Temp 99.1 F Temp Source Oral Pulse Oximetry (%) 100 Intake Visit Reasons: EP-lt hand swollen Intake Note: Patient left hand swollen times 3 days. Patient does not recall any injury Patient Tobacco Use Status: Former Tobacco user Allergies No Known Allergies Allergy (Verified 12/01/24 15:25) Do you need a note to return to daycare/school/sports/work: Yes HPI HPI Comments History of Present Illness Details History of Present Illness - The patient is a 54-year-old male pres enting with acute left hand swelling. - Swelling onset was noted upon waking t he day before yesterday; no trauma or specific incidence reported preceding the symptoms. - Painful swelling described as warm and red in appearance, with symptoms extending up the arm. - The patient denies bites, infections, or any hand injuries leading to the symptoms; however, previous gout flares in the same location are reported. - Previous episodes of gout treated with prednisone; no ongoing usage of standard gout management medications like Allopurinol. - Dietary habits include regular consump tion of red meat, acknowledged as a gout trigger. - He denies fever, chills, bug bite, inj ection, joint pain, CP, SOB. He denies trauma or falls. - He denies numbness or tingling. Physical Exam General: Cooperative, healthy appearing, comfortable, no acute distress and well developed Respiratory: Normal respiratory effort and able to speak in complete sentences. Clear to auscultation bilaterally Cardiovascular: Regular rate and rhythm. Normal S1 and S2 Skin: Redness noted on the arm, warm to the touch Neuro: Sensation is intact Extremities: Swollen left hand and wrist, unable to make a fist. FROM of the digits on the left and wrist. TTP of the radial and ulnar styloid on the left. TTP of the carpal bones. Pulses are 2+. Cap refill less than 3 seconds. Patient was informed and verbally consented to the use of an ambient scribe for clinic note documentation during this visit. [facility] Medical History Alcohol abuse Dyslipidemia Hypertension Surgical History No pertinent past surgical history Social History Housing: Apartment Patient Tobacco Use Status: Former Tobacco user e-Cigarette/Vaping Use: Never Used Second Hand Smoke Exposure: No service: No Current occupational status: employed Current occupation: [employer] Current occupational exposures/hazards: No Cognitive needs: No Hearing needs: No Vision needs: No Review of Systems Const All systems reviewed & are unremarkable except as noted in HPI and below Physical Exam Vital Signs: Last Vital Signs Temp 99.1 F 12/01/24 15:19 Pulse 97 12/01/24 15:19 BP 114/76 12/01/24 15:19 Pulse Ox 100 12/01/24 15:19 BMI result Body Mass Index 24.1 Assessment & Plan Assessment & Plan (1) Swelling of left hand: Code(s): M79.89 - Other specified soft tissue disorders Plan Most likely due to injury vs gout vs cellulitis vs arthritis Plan - X-ray ordered for the hand to assess further for fractures or acute concerns contributing to swelling. - Rest, ice, and elevation of the left hand - Prednisone prescribed to address symptoms of acute swelling and pain, considering history of gout in the same location. - Blood work including uric acid level ordered to evaluate underlying factors contributing to symptoms. - Encourage dietary changes specifically reducing red meat and alcohol consumption to mitigate triggers for gout flares. - Monitor response to prednisone therapy and coordinate with the primary care provider regarding long-term gout management. - Follow up with PCP - work note given Orders: Orders XR hand LT min 3V Today M79.642 - Pain in left hand Uric Acid Today M79.642 - Pain in left hand Medications: New prednisone 50 mg PO QAM 5 tabs 0RF naproxen 500 mg PO Q12H PRN 20 tabs 0RF pain 10 days Coding Level of Care Code Est Pt Level 4 (63317) Diagnoses Swelling of left hand M79.89
--- OUTSIDE RECORDS SUMMARY | 2024-12-01 17:35 | XMS_ITS | Clinical Summary ---
Author Organization [facility] Address [address] [place] [address] Phone Care Team Providers Care Detective Chief Name Role Phone Physician, No Pcp Primary Care Provider Unavaila ble Allergies No known active allergies Medications amLODIPine (NORVASC) 10 mg tablet Take 1 tablet (10 mg total) by mouth 1 (one) time each day. 5 Active metoprolol succinate (TOPROL-XL) 100 mg 24 hr tablet Take 1 tablet (100 mg total) by mouth 1 (one) time each day. 5 Active folic acid (FOLVITE) 1 mg tablet Take 1 tablet (1 mg total) by mouth 1 (one) time each day. 30 each 5 12/28/19 25 Active thiamine (VITAMIN B-1) 100 mg tablet Take 1 tablet (100 mg total) by mouth 1 (one) time each day. 30 tablet 5 12/28/19 25 Active naltrexone (DEPADE) 50 mg tablet Take 1 tablet (50 mg total) by mouth 1 (one) time each day for 26 days. 26 each 5 12/24/19 25 Active magnesium oxide (MAG-OX) 400 mg magnesium tablet Take 1 tablet (400 mg total) by mouth 1 (one) time each day for 5 days. 5 tablet 5 12/02/19 25 Active multivitamin tablet Take 1 tablet by mouth 1 (one) time each day. 30 each 5 12/27/19 25 Active meloxicam (MOBIC) 7.5 mg tablet Take 1 tablet (7.5 mg total) by mouth 1 (one) time each day. 5 11/27/19 25 Discontinu ed(Stop Taking at Discharge) potassium chloride (KLOR-CON M10) 10 mEq CR tablet Take 2 tablets (20 mEq total) by mouth 1 (one) time each day for 3 days. Tablet may be swallowed whole (do not crush/chew/suc k on) OR broken in half and each half swallowed separately OR dissolved (whole tablet) in ~4 ounces of water (allow ~2 minutes to dissolve, stir well and administer immediately). 6 each 5 11/30/19 25 Active Problems No known active problems Resolved Problems Problem Noted Date Diagnosed Date Resolved Date Alcohol withdrawal seizure w ithout complication ([facility] V24, [facility] V28) 11/23/2024 11/26/2024 Encounters Date Type Department Care Team Description 11/23/2024 4:43 PM EDT - 11/26/2024 3:34 PM EDT Hospital Encounter [facility] [address] [place] [address] Lisseth Leary MD Jones, Christopher, MD Seralathan, Manikandan, MD Alcohol withdrawal seizure without complication ([facility] V24, [facility] V28) (Primary Dx); Bacteremia; Hypomagnesemia; Hypokalemia Discharge Disposition: Home or Self Care from Last 3 Months Surgical History Surgery Date Site/Laterality Comments KNEE [...] Never Alcohol Use Standard Drinks/Week Comments Yes 21 (1 standard drink = 0.6 oz pu re alcohol) 3 a day on average Housing Instability Answer Date Recorde d Are you worried that in the next 2 months you may not have stable housing? No 11/24/2024 Food Access & Nutrition Answer Date Rec orded Do you have access to a vari ety of food including fruits and vegetables? Yes 11/24/2024 Access to Healthcare Answer Date Record ed Within the last 3 months, ho w many times did you visit the emergency department for your medical care? 0 11/24/2024 Health Literacy Answer Date Recorded How often do you need to hav e someone help you when you read instructions, pamphlets, or other written material from your doctor or pharmacy? Never 11/24/2024 Caregiver: How often do you need to have someone help you when you read instructions, pamphlets, or other written material from your doctor or pharmacy? Not on file 11/24/2024 Financial Risk Answer Date Recorded How hard is it for you to pa y for the very basics like food, housing, medical care, and air conditioning / heating? Not very hard 11/24/2024 Transportation Answer Date Recorded Has the lack of transportati on kept you from meetings, work, or from getting things needed for daily living? No Has the lack of transportati on kept you from medical appointments or from getting medications? No 11/24/2024 Social Isolation Answer Date Recorded How often do you feel lonely or isolated from th ose around you? Never 11/24/2024 Food Risk Answer Date Recorded Within the past 12 months we worried whether our food would run out before we got money to buy more. Never true 11/24/2024 Within the past 12 months th e food we bought just didn't last and we didn't have money to get more. Never true 11/24/2024 Dependent Care Answer Date Recorded Do you need help finding or paying for care for your loved ones. For example, director of early childhood or elderly care for an older adult? No 11/24/2024 Education Answer Date Recorded Do you think completing more education or training, like finishing a GED, going to college, or learning a trade, would be helpful for you? No 11/24/2024 Employment and Income Answer Date Recor ded During the last four weeks, have you been actively looking for work? No 11/24/2024 Living Situation Answer Date Recorded What is your living situation? 0 11/24/2024 Interpersonal Safety Answer Date Record ed Physical Abuse 11/24/2024 Verbal Abuse 11/24/2024 Sex and Gender Information Value Date Recorded Sex Assigned at Male 11/24/2024 8:57 AM EDT Legal Sex Male 12:10 PM EST Gender Identity Male 11/24/2024 4:05 PM EDT Sexual Orientation Straight 11/24/2024 8: 57 AM EDT Obstetrics History Last Filed Vital Signs Vital Sign Reading Time Taken Comments Blood Pressure 123/96 11/26/2024 12:37 PM EDT Pulse 87 11/26/2024 12:37 PM EDT Temperature 36.2 C (97.2 F) 11/26/2024 12:37 PM EDT Respiratory Rate 17 11/26/2024 12:37 PM EDT Oxygen Saturation 100% 11/26/2024 12:37 PM EDT Inhaled Oxygen Concentration - - Weight 79.4 kg (175 lb) 11/23/2024 4:52 PM EDT Height 177.8 cm (5' 10 ) 11/23/2024 4:52 PM EDT Body Mass Index 25.11 11/23/2024 4:52 PM EDT Plan of Treatment Health Maintenance Due Date Last Done Comments DTaP,Tdap,and Td Vaccines (1 - Tdap) 10/09/1990 Hepatitis A Vaccines (1 of 2 - Risk 2-dose series) 10/09/1990 Hepatitis B Vaccines (1 of 3 - 19+ 3-dose series) 10/09/1990 Pneumococcal Vaccine: 50+ Years (1 of 1 - PCV) 10/09/2021 Zoster Vaccines (1 of 2) 10/09/2021 Cholesterol Screening (Lipid Panel) 05/14/2022 Colorectal Cancer Screening: Colonoscopy 05/14/2022 Depression Screening 05/14/2022 HIV Screening 05/14/2022 COVID-19 Vaccine (3 - 2023-2 5 season) 2024 11/01/2020, 10/11/2020 Influenza Vaccine (Season Ended) 2025 Social Influencers of Health Screening 11/24/2025 11/24/2024 Hypertension/CHF/CAD Annual BMP Blood Test 11/26/2025 11/26/2024, 11/24/2024, 11/23/2024 Hepatitis C Screening Completed 11/23/2024 HIB Vaccines Aged Out No longer eligi [...] age to complete this topic Pneumococcal Vaccine: Pediatrics (0 to 5 Years) and At-Risk Patients (6 to 64 Years) Aged Out No longer eligible b ased on patient's age to complete this topic RSV Immunization Patients Under 20 months Aged Out No longer eligible b ased on patient's age to complete this topic Varicella Vaccines Aged Out No longer eligible based on patient's age to complete this topic Procedures Procedure Name Priority Date/Time Associated Diagnosis Comments ECG ANNOTATED 11/27/2024 TRANSTHORACIC ECHOCARDIOGRAM (TTE) COMPLETE Routine 11/26/2024 10:19 AM EDT Bacteremia CBC WITH AUTO DIFFERENTIAL Routine 11/26/2024 8:16 AM EDT CBC AND DIFFERENTIAL Routine 11/26/2024 8:16 AM EDT BASIC METABOLIC PANEL Routine 11/26/2024 8:16 AM EDT MAGNESIUM Routine 11/26/2024 8:16 AM EDT PHOSPHORUS Routine 11/26/2024 8:16 AM EDT CULTURE BLOOD STAT 11/25/2024 3:53 PM EDT CULTURE BLOOD STAT 11/25/2024 3:41 PM EDT POTASSIUM Routine 11/25/2024 8:11 AM EDT LAVENDER - EDTA Routine 11/25/2024 8:08 AM EDT EXTRA TUBES Routine 11/25/2024 8:08 AM EDT RESPIRATORY VIRUS PANEL MOLECULAR STUDY STAT 11/24/2024 8:52 AM EDT CBC WITH AUTO DIFFERENTIAL Routine 11/24/2024 5:36 AM EDT COMPREHENSIVE METABOLIC PANEL Routine 11/24/2024 5:36 AM EDT PROTHROMBIN TIME WITH INR Routine 11/24/2024 5:36 AM EDT CBC AND DIFFERENTIAL Routine 11/24/2024 5:36 AM EDT METHADONE SCREEN, URINE STAT 11/24/19 11:35 PM EDT PHENCYCLIDINE, URINE STAT 11/23/2024 11:35 PM EDT BUPRENORPHINE SCREEN, URINE STAT 11/23/2024 11:35 PM EDT DRUG ABUSE SCREEN 8A PANEL, URINE STAT 11/23/2024 11:35 PM EDT TROPONIN I HIGH SENSITIVITY STAT 11/23/2024 9:17 PM EDT CULTURE BLOOD STAT 11/23/2024 8:36 PM EDT LACTATE, WITH REFLEX STAT 11/23/2024 8:13 PM EDT TROPONIN I HIGH SENSITIVITY STAT 11/23/2024 8:13 PM EDT BLOOD CULTURE PATHOGENS BY PCR Routine 11/23/2024 8:13 PM EDT CULTURE BLOOD STAT 11/23/2024 8:[address] HEAD WO CONTRAST STAT 11/23/2024 7 :53 PM EDT XR CHEST 1 VIEW STAT 11/23/2024 6:08 PM EDT ECG 12-LEAD STAT 11/23/2024 4:58 PM EDT IRON AND TIBC Add-On 11/23/2024 4:58 PM EDT HEPATITIS PANEL, ACUTE WITH REFLEX TO CONFIRMATION Add-On 11/23/2024 4:58 PM EDT CBC WITH AUTO DIFFERENTIAL STAT 11/23/2024 4:58 PM EDT MAGNESIUM STAT 11/23/2024 4:58 PM EDT CBC AND DIFFERENTIAL STAT 11/23/2024 4:58 PM EDT PROLACTIN STAT 11/23/2024 4:58 PM EDT ACETAMINOPHEN LEVEL STAT 11/23/2024 4 :58 PM EDT SALICYLATE LEVEL STAT 11/23/2024 4:58 PM EDT COMPREHENSIVE METABOLIC PANEL STAT 11/23/2024 4:58 PM EDT LIPASE STAT 11/23/2024 4:58 PM EDT ETHANOL STAT 11/23/2024 4:58 PM EDT POCT GLUCOSE BLOOD Routine 11/23/2024 4: 54 PM EDT from Last 3 Months Results * ECG-Annotated (11/27/2024) us Provider Onbase MD ECG ORDERABLES Final Result * (ABNORMAL) TRANSTHORACIC ECHOCARDIOGRAM (TTE) COMPLETE (11/26/2024 10:19 AM EDT) Left Atrium Minor [place] 5.0 cm CV PACS Left Atrium Major [place] 4.2 cm CV PACS LA Area Sys (A2C) 16 cm2 CV PACS LA Area Sys (A4C) 11 cm2 CV PACS LA Volume (BP) 34 mL CV PACS RA Area 13.3 cm2 CV PACS RA 2D Volume 27 mL CV PACS AV Mean Gradient 2 mmHg CV PACS Ao VTI 16.5 cm CV PACS AV Peak Alexandr 0.9 m/s CV PACS AV Peak Gradient 3 mmHg CV PACS AV Area Continuity Equation 5.2 cm2 CV PACS AV Area Peak Velocity 5.5 cm2 CV PACS Aortic Arch 3.4 cm CV PACS Ascending Aorta 4.2 cm CV PACS Aortic Sinus Valsalva 5.0 cm CV PACS IVC Proximal 1.2 cm CV PACS IVSD 0.9 0.6 - 1.0 cm CV PACS LVIDD 5.0 4.2 - 5.8 cm CV PACS LVIDS 3.5 2.5 - 4.0 cm CV PACS LVOT Diameter 2.7 cm CV PACS LVOT Mean Alexandr 0.5 m/s CV PACS LVOT Mean Grad 1 mmHg CV PACS LVOT Peak VTI 15.1 cm CV PACS LVOT Peak Alexandr 0.9 m/s CV PACS LVOT Peak Gradient 3 mmHg CV PACS LVPWD 0.9 0.6 - 1.0 cm CV PACS MV E' Tissue Velocity Lateral 5 cm/s CV PACS MV E' Tissue Velocity Septal 5 cm/s CV PACS LVOT Area 5.7 cm2 CV PACS LVOT Stroke Volume 87 mL CV PACS MV Deceleration [place] 2.3 m/s2 CV PACS E Wave Deceleration Time 139 119 - 242 ms CV PACS MV PHT 41 ms CV PACS MV Peak A Alexandr 0.66 m/s CV PACS MV Peak E Alexandr 0.31 m/s CV PACS MV Area PHT 5.4 cm2 CV PACS PV Acceleration Time 113 ms CV PACS RV Diastolic Basal Dimension 2.3(A) 2.5 - 4.1 cm CV PACS RV S' 9 cm/s CV PACS TAPSE 14 mm CV PACS TR Peak Velocity 2.09 m/s CV PACS TR Peak Gradient 17 mmHg CV PACS E/E' Ratio Septal 6 CV PACS E/E' Ratio Averaged 6 CV PACS LVOT Stroke Index 44 mL/m2 CV PACS Relative Wall Thickness ratio 0.36 CV PACS LVOT:AV VTI Index 0.92 CV PACS FS 30 % CV PACS LV Mass 2D 158 g CV PACS Ascending Aorta Index 2.13 cm/m2 CV PACS LVOT flow 286 mL/s CV PACS RA 2D Volume Index 14 mL/m2 CV PACS [place] Index (VTI) 2.66 cm2/m2 CV PACS [place] Index (Pk Alexandr) 2.79 cm2/m2 CV PACS LVIDD Index 2.54 cm/m2 CV PACS LVIDS Index 1.78 cm/m2 CV PACS AV Velocity Ratio 1.00 CV PACS E/A Ratio 0.5 CV PACS E/E' Ratio Lateral 6 CV PACS LA Volume Index (BP) 17 mL/m2 CV PACS LV Mass Index 2D 80 g/m2 CV PACS BSA 1.98 m2 CV PACS Right Ventricular Peak Systolic Pressure 20 mmHg CV PACS Est. RA Pressure 3 mmHg CV PACS Anatomical Region Laterality Modality Ultrasound Narrative 11/26/2024 11:29 AM EDT Left ventricle cavity size is normal. Left ventricular systolic function is low normal with an ejection fraction of 50-55%. No regional LV wall motion abnormalities noted. Left ventricle wall thickness is normal. Right ventricle cavity is normal. Right ventricular systolic function is low normal. The atria are normal in size. No hemodynamically significant valve disease. The Sinus of Valsalva is markedly dilated (5.0 cm). The ascending aorta is dilated (4.2 cm). Consider CTA of chest for full evaluation of the thoracic aorta. Left Ventricle Left ventricle cavity size is normal. Wall thickness is normal. Systolic function is low normal with an ejection fraction of 50-55%. There are no regional LV wall motion abnormalities. E-A reversal consistent with mild diastolic relaxation abnormality. Right Ventricle Right ventricle cavity appears normal. Systolic function is low normal. Left Atrium Left atrium cavity size is normal. Right Atrium Right atrium cavity is normal. IVC/SVC RA pressures is estimated to be 3 mmHg (IVC diameter <21 mm and decreases >50% during inspiration). Mitral Valve The leaflets are mildly thickened. There is annular calcification. There is trace regurgitation. There is no evidence of mitral valve stenosis. Tricuspid Valve Tricuspid valve structure is normal. There is trace regurgitation. The right ventricular systolic pressure is normal. Aortic Valve The aortic valve is trileaflet. There is trace regurgitation. There is no evidence of aortic valve stenosis. Pulmonic Valve Pulmonic valve structure is normal. There is trace pulmonic valve regurgitation. Ascending Aorta The Sinus of Valsalva is severely dilated (5.0 cm). The ascending aorta is dilated (4.2 cm). Pericardium Pericardium appears normal. There is no pericardial effusion. Study Details Overall the study quality was adequate. Trung Cheney MD CV ECHO PROCEDURES Chanelle l Result * (ABNORMAL) CBC auto differential (11/26/2024 8:16 AM EDT) Only the most recent of3 resultswithin the time period is included. Pathologist [facility] WBC 3.0(L) 4.8 - 10.8 K/mcL LAB HEMETOLOGY METHOD 11/26/2024 9:10 AM [facility] RBC 4.10(L) 4.50 - 5.50 M/mcL LAB HEMETOLOGY METHOD 11/26/2024 9:10 AM [facility] Hemoglobin 9.7(L) 13.5 - 17.5 g/dL LAB HEMETOLOGY METHOD 11/26/2024 9:10 AM [facility] Hematocrit 30.9(L) 42.0 - 54.0 % LAB HEMETOLOGY METHOD 11/26/2024 9:10 AM [facility] MCV 75.9(L) 79.0 - 98.0 FL LAB HEMETOLOGY METHOD 11/26/2024 9:10 AM [facility] MCH 23.8(L) 27.0 - 32.0 pcg LAB HEMETOLOGY METHOD 11/26/2024 9:10 AM [facility] MCHC 31.4(L) 32.0 - 37.0 g/dL LAB HEMETOLOGY METHOD 11/26/2024 9:10 AM [facility] RDW 15.4(H) 11.0 - 15.0 % LAB HEMETOLOGY METHOD 11/26/2024 9:10 AM [facility] Platelets 73(L) 130 - 400 K/mcL LAB HEMETOLOGY METHOD 11/26/2024 9:10 AM [facility] Comment:previously verified by slide MPV 11.3(H) 7.0 - 11.0 FL LAB HEMETOLOGY METHOD 11/26/2024 9:10 AM [facility] NRBC 0.0 <1.0 % LAB HEMETOLOGY METHOD 11/26/2024 9:10 AM [facility] NRBC Absolute 0.00 <0.10 K/mcL LAB HEMETOLOGY METHOD 11/26/2024 9:10 AM [facility] Neutrophils Relative 55.2 % LAB HEMETOLOGY METHOD 11/26/2024 9:10 AM [facility] Lymphocytes Relative 23.9 % LAB HEMETOLOGY METHOD 11/26/2024 9:10 AM [facility] Monocytes Relative 15.2 % LAB HEMETOLOGY METHOD 11/26/2024 9:10 AM [facility] Eosinophils Relative 3.7 % LAB HEMETOLOGY METHOD 11/26/2024 9:10 AM [facility] Basophils Relative 1.7 % LAB HEMETOLOGY METHOD 11/26/2024 9:10 AM [facility] Immature Granulocytes Relative 0.3 % LAB HEMETOLOGY METHOD 11/26/2024 9:10 AM [facility] Neutrophils Absolute 1.64 1.50 - 7.00 K/mcL LAB HEMETOLOGY METHOD 11/26/2024 9:10 AM [facility] Lymphocytes Absolute 0.71(L) 1.00 - 5.00 K/mcL LAB HEMETOLOGY METHOD 11/26/2024 9:10 AM [facility] Monocytes Absolute 0.45 0.20 - 1.00 K/mcL LAB HEMETOLOGY METHOD 11/26/2024 9:10 AM EDT [facility] Eosinophils Absolute 0.11 0.00 - 0.50 K/[facility] LAB HEMETOLOGY METHOD 11/26/2024 9:10 AM EDT [facility] Basophils Absolute 0.05 0.00 - 0.20 K/[facility] LAB HEMETOLOGY METHOD 11/26/2024 9:10 AM EDT [facility] Immature Granulocytes Absolute 0.01 0.00 - 0.03 K/[facility] LAB HEMETOLOGY METHOD 11/26/2024 9:10 AM EDT [facility] Blood Venous blood specimen / Unknown Venipuncture / Unknown 11/26/2024 8:16 AM EDT 11/26/2024 8:41 AM EDT us Trung Cheney MD LAB BLOOD ORDERABLES Fi nal Result Performing Organization Address City/[facility]/ZIP Co de Phone Number [facility] [address] [place] [address], [place] [phone] * Phosphorus (11/26/2024 8:16 AM EDT) Phosphorus 3.7 2.5 - 4.5 mg/dL LAB CHEMISTRY METHOD 11/26/2024 9:46 AM EDT [facility] Blood Venous blood specimen / Unknown Venipuncture / Unknown 11/26/2024 8:16 AM EDT 11/26/2024 8:41 AM EDT Trung Cheney MD LAB BLOOD ORDERABLES Fi nal Result Performing Organization Address City/[facility]/ZIP Co de Phone Number [facility] [address] [place] [address], [place] [phone] * (ABNORMAL) Magnesium (11/26/2024 8:16 AM EDT) Only the most recent of2 resultswithin the time period is included. Magnesium 1.8(L) 1.9 - 2.6 mg/dL LAB CHEMISTRY METHOD 11/26/2024 9:46 AM [facility] Blood Venous blood specimen / Unknown Venipuncture / Unknown 11/26/2024 8:16 AM EDT 11/26/2024 8:41 AM EDT Trung Cheney MD LAB BLOOD ORDERABLES Fi nal Result [facility] [address] [place] [address], * (ABNORMAL) Basic metabolic panel (11/26/2024 8:16 AM EDT) Sodium 137 133 - 145 mmol/L LAB CHEMISTRY METHOD 11/26/2024 9:46 AM [facility] Potassium 3.1(L) 3.5 - 5.5 mmol/L LAB CHEMISTRY METHOD 11/26/2024 9:46 AM [facility] Chloride 101 96 - 110 mmol/L LAB CHEMISTRY METHOD 11/26/2024 9:46 AM [facility] CO2 29 21 - 32 mmol/L LAB CHEMISTRY METHOD 11/26/2024 9:46 AM [facility] Anion Gap 7 3 - 11 LAB CHEMISTRY METHOD 11/26/2024 9:46 AM [facility] Glucose 105(H) 70 - 100 mg/dL LAB CHEMISTRY METHOD 11/26/2024 9:46 AM [facility] BUN 8 5 - 25 mg/dL LAB CHEMISTRY METHOD 11/26/2024 9:46 AM [facility] Creatinine 0.70 0.70 - 1.30 mg/dL LAB CHEMISTRY METHOD 11/26/2024 9:46 AM [facility] eGFR 110 >=60 mL/min/1. 73m2 LAB CHEMISTRY METHOD 11/26/2024 9:46 AM EDT [facility] Comment:Calculation based on the Chronic Kidney Disease Epidemiology Collaboration (CKD-EPI) equation refit without adjustment for race. BUN/Creatinine Ratio 11.4 LAB CHEMISTRY METHOD 11/26/2024 9:46 AM EDT [facility] Calcium 8.5 8.5 - 10.5 mg/dL LAB CHEMISTRY METHOD 11/26/2024 9:46 AM EDT [facility] Blood Venous blood specimen / Unknown Venipuncture / Unknown 11/26/2024 8:16 AM EDT 11/26/2024 8:41 AM EDT us Trung Cheney MD LAB BLOOD ORDERABLES Fi nal Result Performing Organization Address [facility]/ZIP Co de Phone Number [facility] [address] [place] [address], * Blood Culture, Peripheral Draw #2 (11/25/2024 3:53 PM EDT) Only the most recent of4 resultswithin the time period is included. Culture, Blood No growth at 5 days LAB MICROBIOLOGY METHOD 11/30/2024 5:01 PM EDT [facility] Blood Venous blood specimen / Unknown Venipuncture / Unknown 11/25/2024 3:53 PM EDT 11/25/2024 4:00 PM EDT Trung Cheney MD LAB MICROBIOLOGY - GENE RAL ORDERABLES Final Result Performing Organization Address [facility]/ZIP Co de Phone Number [facility] [address] [place] [address], [place] [phone] * (ABNORMAL) Potassium (11/25/2024 8:11 AM EDT) Potassium 3.0(L) 3.5 - 5.5 mmol/L LAB CHEMISTRY METHOD 11/25/2024 9:10 AM EDT [facility] Blood Venous blood specimen / Unknown Venipuncture / Unknown 11/25/2024 8:11 AM EDT 11/25/2024 8:35 AM EDT Trung Cheney MD LAB BLOOD ORDERABLES Fi nal Result [facility] [address] [place] [address], [place] [phone] * Lavender tube (11/25/2024 8:08 AM EDT) [facility] Extra Tube Hold for add-ons. 11/25/2024 10:01 AM EDT [facility] Comment:Auto resulted. Blood Venous blood specimen / Unknown 11/25/2024 8:08 AM EDT 11/25/2024 8:40 AM EDT Trung Cheney MD LAB BLOOD ORDERABLES Fi nal Result [facility] [address] [place] [address], [place] [phone] * Respiratory virus panel molecular study (11/24/2024 8:52 AM EDT) [facility] Adenovirus Detection by PCR Not Detected Not Detected LAB MICROBIOLOGY METHOD 11/24/2024 10:38 AM EDT [facility] Influenza A PCR Not Detected Not Detected LAB MICROBIOLOGY METHOD 11/24/2024 10:38 AM EDT [facility] Influenza B PCR Not Detected Not Detected LAB MICROBIOLOGY METHOD 11/24/2024 10:38 AM EDT [facility] Coronavirus 229E Not Detected Not Detected LAB MICROBIOLOGY METHOD 11/24/2024 10:38 AM EDT [facility] Coronavirus HKU1 Not Detected Not Detected LAB MICROBIOLOGY METHOD 11/24/2024 10:38 AM EDT [facility] Coronavirus OC43 Not Detected Not Detected LAB MICROBIOLOGY METHOD 11/24/2024 10:38 AM EDT [facility] Coronavirus NL63 Not Detected Not Detected LAB MICROBIOLOGY METHOD 11/24/2024 10:38 AM EDT [facility] Parainfluenza Virus 1 Not Detected Not Detected LAB MICROBIOLOGY METHOD 11/24/2024 10:38 AM EDT [facility] Parainfluenza Virus 2 Not Detected Not Detected LAB MICROBIOLOGY METHOD 11/24/2024 10:38 AM EDT [facility] Parainfluenza Virus 3 Not Detected Not Detected LAB MICROBIOLOGY METHOD 11/24/2024 10:38 AM EDT [facility] Parainfluenza Virus 4 Not Detected Not Detected LAB MICROBIOLOGY METHOD 11/24/2024 10:38 AM EDT [facility] RSV PCR Not Detected Not Detected LAB MICROBIOLOGY METHOD 11/24/2024 10:38 AM EDT [facility] Human Metapneumovirus A and B Not Detected Not Detected LAB MICROBIOLOGY METHOD 11/24/2024 10:38 AM EDT [facility] Rhinovirus/Entero virus Not Detected Not Detected LAB MICROBIOLOGY METHOD 11/24/2024 10:38 AM EDT [facility] Bordetella pertussis Not Detected Not Detected LAB MICROBIOLOGY METHOD 11/24/2024 10:38 AM EDT [facility] Bordetella parapertussis Not Detected Not Detected LAB MICROBIOLOGY METHOD 11/24/2024 10:38 AM EDT [facility] Mycoplasma pneumo by PCR Not Detected Not Detected LAB MICROBIOLOGY METHOD 11/24/2024 10:38 AM EDT [facility] Chlamydia pneumoniae Not Detected Not Detected LAB MICROBIOLOGY METHOD 11/24/2024 10:38 AM EDT [facility] SARS COV-2 Not Detected Not Detected LAB MICROBIOLOGY METHOD 11/24/2024 10:38 AM EDT [facility] Swab Both anterior nares / Unknown Non-blood Collection / Unknown 11/24/2024 8:52 AM EDT 11/24/2024 9:39 AM EDT Narrative [facility] - 11/24/2024 10:38 AM EDT Testing was performed using the [employer] Respiratory Pathogen PCR Assay. All results must be correlated with the clinical findings. Results should not be used as the sole basis for diagnosis. False Negative results may occur from the presence of sequence variants in the region targeted by the assay or the presence of inhibitors. Results may be affected by concurrent antiviral/antimicrobial therapy or levels of organisms that are below the limit of detection. us Rick Huddleston MD LAB MICROBIOLOGY - GENERAL ORDERABLES Final Result Performing Organization Address City/[facility]/ZIP Co de Phone Number [facility] [address] [place] [address], [place] [phone] * Prothrombin time with INR (11/24/2024 5:36 AM EDT) Protime 12.1 10.6 - 13.9 sec LAB COAGULATION METHOD 11/24/2024 6:19 AM EDT [facility] INR 1.0 LAB COAGULATION METHOD 11/24/2024 6:19 AM EDT [facility] Blood Venous blood specimen / Unknown Venipuncture / Unknown 11/24/2024 5:36 AM EDT 11/24/2024 6:10 AM EDT us Rick Huddleston MD LAB BLOOD ORDERABLES Final Result Performing Organization Address City/[facility]/ZIP Co de Phone Number [facility] [address] [place] [address], [place] [phone] * (ABNORMAL) Comprehensive metabolic panel (11/24/2024 5:36 AM EDT) Only the most recent of2 resultswithin the time period is included. Sodium 134 133 - 145 mmol/L LAB CHEMISTRY METHOD 11/24/2024 7:03 AM [facility] Potassium 3.3(L) 3.5 - 5.5 mmol/L LAB CHEMISTRY METHOD 11/24/2024 7:03 AM [facility] Chloride 98 96 - 110 mmol/L LAB CHEMISTRY METHOD 11/24/2024 7:03 AM [facility] CO2 27 21 - 32 mmol/L LAB CHEMISTRY METHOD 11/24/2024 7:03 AM [facility] Anion Gap 9 3 - 11 LAB CHEMISTRY METHOD 11/24/2024 7:03 AM [facility] Glucose 93 70 - 100 mg/dL LAB CHEMISTRY METHOD 11/24/2024 7:03 AM [facility] BUN 9 5 - 25 mg/dL LAB CHEMISTRY METHOD 11/24/2024 7:03 AM [facility] Creatinine 0.70 0.70 - 1.30 mg/dL LAB CHEMISTRY METHOD 11/24/2024 7:03 AM [facility] eGFR 110 >=60 mL/min/1. 73m2 LAB CHEMISTRY METHOD 11/24/2024 7:03 AM [facility] Comment:Calculation based on the Chronic Kidney Disease Epidemiology Collaboration (CKD-EPI) equation refit without adjustment for race. BUN/Creatinine Ratio 12.9 LAB CHEMISTRY METHOD 11/24/2024 7:03 AM [facility] Calcium 9.1 8.5 - 10.5 mg/dL LAB CHEMISTRY METHOD 11/24/2024 7:03 AM [facility] AST (SGOT) 203(H) 10 - 42 unit/L LAB CHEMISTRY METHOD 11/24/2024 7:03 AM [facility] ALT (SGPT) 91(H) 10 - 60 unit/L LAB CHEMISTRY METHOD 11/24/2024 7:03 AM [facility] Alkaline Phosphatase 115 42 - 121 unit/L LAB CHEMISTRY METHOD 11/24/2024 7:03 AM EDT [facility] Total Protein 8.1(H) 6.0 - 8.0 g/dL LAB CHEMISTRY METHOD 11/24/2024 7:03 AM [facility] Albumin 3.8 3.2 - 5.0 g/dL LAB CHEMISTRY METHOD 11/24/2024 7:03 AM T [facility] Total Bilirubin 0.9 0.0 - 1.4 mg/dL LAB CHEMISTRY METHOD 11/24/2024 7:03 AM [facility] Blood Venous blood specimen / Unknown Venipuncture / Unknown 11/24/2024 5:36 AM EDT 11/24/2024 6:10 AM EDT us Sarah ESCALANTE LAB BLOOD ORDERABLES Final Resu lt [facility] [address] [place] [address], [place] [phone] * (ABNORMAL) Drug abuse screen 8a panel, urine (11/23/2024 11:35 PM EDT) Amphetamine Screen, Ur Negative Negative LAB CHEMISTRY METHOD 5 12:15 AM T [facility] Comment:Certain OTC medicati ons containing ephedrine, phenylephrine, pseudoephedrine and phenylpropanolamine can cause false positive results. Barbiturate Screen, Ur Positive(A ) Negative LAB CHEMISTRY METHOD 5 12:15 AM EDT [facility] Benzodiazepine Screen, Ur Positive(A ) Negative LAB CHEMISTRY METHOD 5 12:15 AM [facility] Cocaine Screen, Ur Negative Negative LAB CHEMISTRY METHOD 5 12:15 AM [facility] Opiate Screen, Ur Negative Negative LAB CHEMISTRY METHOD 5 12:15 AM EDT [facility] Cannabinoid (THC) Screen, Ur Negative Negative LAB CHEMISTRY METHOD 12:15 AM EDT [facility] Comment:Specimens from patie nts taking pantoprazole sodium (Protonix) have been shown to produce false positive results. Oxycodone Screen, Ur Negative Negative LAB CHEMISTRY METHOD 12:15 AM EDT [facility] Fentanyl, Ur Negative Negative LAB CHEMISTRY METHOD 12:15 AM EDT [facility] Urine Urine specimen obtained by clean catch procedure / Unknown Non-blood Collection / Unknown 11/23/2024 11:35 PM EDT 11/23/2024 11:47 PM EDT Narrative [facility] - 11/24/2024 12:15 AM EDT Assay cutoffs: Amphetamines 1000 ng/mL Barbiturates 200 ng/mL Benzodiazepines 200 ng/mL Cocaine 300 ng/mL Fentanyl 1 ng/mL Opiates 300 ng/mL Oxycodone 100 ng/mL THC 50 ng/mL Semi-quantitative assay for screening purposes only. Unconfirmed screening result should not be used for non-medical purposes. *ALTERNATE METHOD CONFIRMATION DONE UPON REQUEST ONLY* Rick Huddleston MD LAB URINE ORDERABLES Final Result [facility] [address] [place] [address], * Buprenorphine screen, urine (11/23/2024 11:35 PM EDT) Buprenorphine Screen Urine Negative Negative LAB CHEMISTRY METHOD 11/24/2024 12:15 AM EDT [facility] Urine Urine specimen obtained by clean catch procedure / Unknown Non-blood Collection / Unknown 11/23/2024 11:35 PM EDT 11/23/2024 11:47 PM EDT Narrative [facility] - 11/24/2024 12:15 AM EDT Assay cutoff 5 ng/mL Semi-quantitative assay for screening purposes only. Unconfirmed screening result should not be used for non-medical purposes. *ALTERNATE METHOD CONFIRMATION DONE UPON REQUEST ONLY* us Rick Huddleston MD LAB URINE ORDERABLES Final Result Performing Organization Address [facility]/ZIP Co de Phone Number [facility] [address] [place] [address], [place] [phone] * Methadone, urine (11/23/2024 11:35 PM EDT) Methadone Screen, Urine Negative Negative LAB CHEMISTRY METHOD 11/24/2024 12:15 AM EDT [facility] Comment: Assay cutoff 300 ng/mL Semi-quantitative assay for screening purposes only. Unconfirmed screening result should not be used for non-medical purposes. *ALTERNATE METHOD CONFIRMATION DONE UPON REQUEST ONLY* Urine Urine specimen obtained by clean catch procedure / Unknown Non-blood Collection / Unknown 11/23/2024 11:35 PM EDT 11/23/2024 11:47 PM EDT us Rick Huddleston MD LAB URINE ORDERABLES Final Result Performing Organization Address [facility]/ZIP Co de Phone Number [facility] [address] [place] [address], [place] [phone] * Phencyclidine, urine (11/23/2024 11:35 PM EDT) PCP Scrn, Ur Negative Negative LAB CHEMISTRY METHOD 11/24/2024 12:15 AM EDT [facility] Comment: Assay cutoff 25 ng/mL Semi-quantitative assay for screening purposes only. Unconfirmed screening result should not be used for non-medical purposes. *ALTERNATE METHOD CONFIRMATION DONE UPON REQUEST ONLY* Urine Urine specimen obtained by clean catch procedure / Unknown Non-blood Collection / Unknown 11/23/2024 11:35 PM EDT 11/23/2024 11:47 PM EDT us Rick Huddleston MD LAB URINE ORDERABLES Final Result Performing Organization Address [facility] Co de Phone Number [facility] [address] [place] [address], [place] [phone] * Troponin I high sensitivity (11/23/2024 9:17 PM EDT) Only the most recent of2 resultswithin the time period is included. Pathologist [facility] High Sensitivity Troponin I 7 <=79 ng/L LAB CHEMISTRY METHOD 11/23/2024 9:58 PM EDT [facility] Blood Venous blood specimen / Unknown Venipuncture / Unknown 11/23/2024 9:17 PM EDT 11/23/2024 9:22 PM EDT Narrative [facility] - 11/23/2024 9:58 PM EDT High levels of biotin in samples may falsely decrease hsTroponin values. Use caution when interpreting hsTroponin results in patients taking biotin who exhibit renal impairment (eGFR <60) or in patients taking more than 20 mg/day of biotin. Rick Huddleston MD LAB BLOOD ORDERABLES Final Result Performing Organization Address [facility] de Phone Number [facility] [address] [place] [address], [place] [phone] * Lactate, with reflex (11/23/2024 8:13 PM EDT) [facility] LACTIC ACID 1.8 0.4 - 2.0 mmol/L LAB CHEMISTRY METHOD 11/23/2024 8:59 PM EDT [facility] Blood Venous blood specimen / Unknown Venipuncture / Unknown 11/23/2024 8:13 PM EDT 11/23/2024 8:20 PM EDT Jasmine ESCALANTE LAB BLOOD ORDERABLES Fin al Result Performing Organization Address [facility] Co de Phone Number [facility] [address] [place] [address], [place] [phone] * (ABNORMAL) Blood culture pathogens molecular study (11/23/2024 8:13 PM EDT) Staphylococcus species Detected (A) Not Detected LAB MICROBIOLOGY METHOD 11/25/2024 4:20 PM EDT [facility] Blood Venous blood specimen / Unknown Venipuncture / Unknown 11/23/2024 8:13 PM EDT 11/23/2024 8:21 PM EDT us Jasmine ESCALANTE LAB MICROBIOLOGY - GENER AL ORDERABLES Final Result [facility] [address] [place] [address], [place] [phone] * CT Head wo Contrast (11/23/2024 7:53 PM EDT) Anatomical Region Laterality Modality Head and Neck Computed Tomogra phy 11/23/2024 8:19 PM EDT Impressions 11/23/2024 8:19 PM EDT 1. No acute intracranial findings. This document has been electronically signed by: Clifford Mcmahon MD on 11/23/2024 20:19:36 Narrative 11/23/2024 8:19 PM EDT INDICATION: Mental status change, unknown cause CT head without contrast Comparison: None Findings: No intra-axial mass, midline shift, hydrocephalus, or acute hemorrhage. Age appropriate cerebral volume loss. Patchy low-density within the periventricular and subcortical white matter. Moderate bilateral ethmoid sinus mucosal thickening. Right maxillary sinus retention cysts. Mastoids are clear. The orbits are within normal limits. There is no acute fracture. Procedure Note Clifford Mcmahon MD - 11/23/2024 INDICATION: Mental status change, unknown cause CT head without contrast Comparison: None Findings: No intra-axial mass, midline shift, hydrocephalus, or acute hemorrhage. Age appropriate cerebral volume loss. Patchy low-density within the periventricular and subcortical white matter. Moderate bilateral ethmoid sinus mucosal thickening. Right maxillarysinus retention cysts. Mastoids are clear. The orbits are within normal limits. There is no acute fracture. IMPRESSION: 1. No acute intracranial findings. This document has been electronically signed by: Clifford Mcmahon MD on 11/23/2024 20:19:[address] PROCEDURES Final Result * XR Chest 1 View (11/23/2024 6:08 PM EDT) Anatomical Region Laterality Modality Body Radiographic Zuri ging 11/23/2024 8:47 PM EDT Impressions 11/23/2024 8:48 PM EDT FINDINGS/IMPRESSION: Hypoventilatory examination with bronchovascular crowding. No consolidation or effusion. Mild cardiomegaly. Tortuous aorta with ascending aortic ectasia. -------- FINAL REPORT -------- Dictated By: Garret Antonio Dictated Date: 11/23/2024 20:47 ET Assigned Physician: Garret Antonio Reviewed and Electronically Signed By: Garret Antonio Signed Date: 11/23/2024 20:48 ET Workstation ID: [id number] Transcribed By: Self Edit Transcribed Date: 11/23/2024 20:47 ET Narrative 11/23/2024 8:48 PM EDT XR CHEST 1 VIEW INDICATION: pain TECHNIQUE: XR CHEST 1 VIEW COMPARISON: No priors available. Procedure Note Garret Antonio MD - 11/23/2024 XR CHEST 1 VIEW INDICATION: pain TECHNIQUE: XR CHEST 1 VIEW COMPARISON: No priors available. IMPRESSION: FINDINGS/IMPRESSION: Hypoventilatory examination with bronchovascularcrowding. No consolidation or effusion. Mild cardiomegaly. Tortuousaorta with ascending aortic ectasia. -------- FINAL REPORT -------- Dictated By: Garret Antonio Dictated Date: 11/23/2024 20:47 ET Assigned Physician: Garret Antonio Reviewed and Electronically Signed By: Garret Antonio Signed Date: 11/23/2024 20:48 ET Workstation ID: [id number] Transcribed By: Self Edit Transcribed Date: 11/23/2024 20:47 ET Jasmine ESCALANTE IMG XR PROCEDURES Final Result * ECG 12 lead (11/23/2024 4:58 PM EDT) Ventricular Rate ECG 78 BPM GEMUSE Atrial Rate 78 BPM GEMUSE P-R Interval 164 ms GEMUSE QRS Duration 90 ms GEMUSE Q-T Interval 424 ms GEMUSE QTc 483 ms GEMUSE R [place] 176 degrees GEMUSE T [place] -177 degrees GEMUSE ECG Interpretation Normal sinus rhythm Right axis deviation Suspect arm lead reversal Minimal voltage criteria for LVH, may be normal variant Prolongation of QT interval Abnormal ECG When compared with ECG of 13-NOV-2022 06:31, Non-specific change in ST segment in Inferior leads Confirmed by Siomara RDZ JOHN ([id number]) on 11/24/2024 8:59:29 PM GEMUSE 11/23/2024 4:58 PM EDT 11/24/2024 8:59 PM EDT Lisseth Leary MD ECG ORDERABLES Final Re sult GEMUSE * Hepatitis panel, acute with reflex to confirmation (11/23/2024 4:58 PM EDT) Pathologist [facility] Hepatitis B Surface Ag Negative Negative LAB CHEMISTRY METHOD 11/23/2024 10:17 PM EDT [facility] Hepatitis A Antibody IgM Negative Negative LAB CHEMISTRY METHOD 11/23/2024 10:17 PM EDT [facility] Hep B Core IgM Negative Negative LAB CHEMISTRY METHOD 11/23/2024 10:17 PM EDT [facility] Hepatitis C Antibody Negative Negative LAB CHEMISTRY METHOD 11/23/2024 10:17 PM EDT [facility] Blood Venous blood specimen / Unknown Venipuncture / Unknown 11/23/2024 4:58 PM EDT 11/23/2024 5:09 PM EDT Rick Huddleston MD LAB BLOOD ORDERABLES Final Result Performing Organization Address [facility]/ZIP Co de Phone Number [facility] [address] [place] [address], [place] [phone] * Iron and TIBC (11/23/2024 4:58 PM EDT) Iron 106 50 - 160 mcg/dL LAB CHEMISTRY METHOD 11/23/2024 9:20 PM EDT [facility] TIBC 257 250 - 450 mcg/dL LAB CHEMISTRY METHOD 11/23/2024 9:20 PM EDT [facility] Iron Saturation 41 20 - 50 % LAB CHEMISTRY METHOD 11/23/2024 9:20 PM EDT [facility] Blood Venous blood specimen / Unknown Venipuncture / Unknown 11/23/2024 4:58 PM EDT 11/23/2024 5:09 PM EDT Rick Huddleston MD LAB BLOOD ORDERABLES Final Result Performing Organization Address [facility] Co de Phone Number [facility] [address] [place] [address], [place] [phone] * (ABNORMAL) Prolactin (11/23/2024 4:58 PM EDT) Prolactin 22.20(H) 2.50 - 17.40 ng/mL LAB CHEMISTRY METHOD 11/23/2024 5:48 PM EDT [facility] Blood Venous blood specimen / Unknown Venipuncture / Unknown 11/23/2024 4:58 PM EDT 11/23/2024 5:09 PM EDT Lisseth Leary MD LAB BLOOD ORDERABLES Fin al Result Performing Organization Address [facility]/ZIP Co de Phone Number [facility] [address] [place] [address], [place] [phone] * (ABNORMAL) Lipase (11/23/2024 4:58 PM EDT) Lipase 125(H) 13 - 75 unit/L LAB CHEMISTRY METHOD 11/23/2024 5:48 PM EDT [facility] Blood Venous blood specimen / Unknown Venipuncture / Unknown 11/23/2024 4:58 PM EDT 11/23/2024 5:09 PM EDT Lisseth Leary MD LAB BLOOD ORDERABLES Fin al Result Performing Organization Address [facility]/ZIP Co de Phone Number [facility] [address] [place] [address], [place] [phone] * (ABNORMAL) Ethanol (11/23/2024 4:58 PM EDT) Ethanol Level 11(H) 0 - 10 mg/dL LAB CHEMISTRY METHOD 11/23/2024 5:48 PM EDT [facility] Blood Venous blood specimen / Unknown Venipuncture / Unknown 11/23/2024 4:58 PM EDT 11/23/2024 5:09 PM EDT Lisseth Leary MD LAB BLOOD ORDERABLES Fin al Result Performing Organization Address [facility]/ZIP Co de Phone Number [facility] [address] [place] [address], [place] [phone] * (ABNORMAL) Acetaminophen level (11/23/2024 4:58 PM EDT) Acetaminophen Level <2.0(L) 10.0 - 30.0 mcg/mL LAB CHEMISTRY METHOD 11/23/2024 6:19 PM EDT [facility] Blood Venous blood specimen / Unknown Venipuncture / Unknown 11/23/2024 4:58 PM EDT 11/23/2024 5:09 PM EDT Lisseth Leary MD LAB BLOOD ORDERABLES Fin al Result Performing Organization Address City/[facility]/ZIP Co de Phone Number [facility] [address] [place] [address], [place] [phone] * Salicylate level (11/23/2024 4:58 PM EDT) Salicylate Level 2.0 2.0 - 29.0 mg/dL LAB CHEMISTRY METHOD 11/23/2024 5:48 PM EDT [facility] Blood Venous blood specimen / Unknown Venipuncture / Unknown 11/23/2024 4:58 PM EDT 11/23/2024 5:09 PM EDT Lisseth Leary MD LAB BLOOD ORDERABLES Fin al Result Performing Organization Address [facility]/ZIP Co de Phone Number [facility] [address] [place] [address], [place] [phone] * (ABNORMAL) POCT Glucose, blood (11/23/2024 4:54 PM EDT) Glucose POCT 157(H) 70 - 100 mg/dL 11/23/2024 5:03 PM EDT [facility] Blood Capillary blood specimen / Unknown 11/23/2024 4:54 PM EDT 11/23/2024 5:04 PM EDT Generic Provider Poct LAB POINT OF CARE TEST DOCKED DEVICE UNSOLICITED RESULTS Final Result Performing Organization Address [facility]/ZIP Co de Phone Number [facility] [address] [place] [address], [place] [phone] from Last 3 Months Insurance [facility] MEDICAID ADVANTAGE Advance Directives Documents on File Type Date Recorded 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 Do not modify or discontinue any currently active code status orders. Healthcare Agents on File Name Relationship Healthcare Agent Relationshi p Communication Dick Dickinson Health Care Agent Care Teams Detective Chief Relationship Specialty Start Date End Date Physician, No Pcp PCP - General 11/23/24
== END 2024-12-01 16:22 | disposition home or self-care (01) ==
PROVIDERS: PCP Nurse Practitioner Family; Visit Provider Physician Assistant Medical
DX: M79.89 Other specified soft tissue disorders (principal)

== ENCOUNTER → 2024-12-01 16:09 | Outpatient (BNV) | payer OTHER, SELFPAY | PROVIDERS: PCP Nurse Practitioner Family; Visit Provider Radiology Diagnostic Radiology | DX: M79.642 Pain in left hand (principal) | CPT/HCPCS: 73130 ==

== ENCOUNTER 2024-12-02 14:57 | Outpatient (REF) | payer OTHER, SELFPAY ==
--- OUTSIDE RECORDS SUMMARY | 2024-12-02 16:17 | XMS_ITS | Clinical Summary ---
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 26 each 5 12/24/19 25 Active multivitamin tablet Take 1 tablet [...] administer immediately). 6 each 5 11/30/19 25 magnesium oxide (MAG-OX) 400 mg magnesium tablet Take 1 tablet (400 mg total) by mouth 1 (one) time each day for 5 days. 5 tablet 5 12/02/19 25 Active Problems No known active problems Resolved Problems Problem Noted Date Diagnosed Date Resolved Date Alcohol withdrawal seizure w ithout complication ([facility] V24, [facility] V28) 11/23/2024 11/26/2024 Encounters Date Type Department Care Team Description 11/23/2024 4:43 PM EDT - 11/26/2024 3:34 PM EDT Hospital Encounter [facility] [address] [place] [address] Lisseth Leary MD Jones, Christopher, MD Seralathan, Manikandan, MD Alcohol withdrawal seizure without complication ([facility] V24, [facility] V28) (Primary Dx); Bacteremia; Hypomagnesemia; Hypokalemia [...] care for your loved ones. For example, child development consultant or elderly care for an older adult? [...] AM EDT METHADONE SCREEN, URINE STAT 11/24/19 25 11:35 PM EDT PHENCYCLIDINE, URINE STAT 11/23/2024 [...] (11/26/2024 10:19 AM EDT) Left Atrium Minor [place] 5.0 cm CV PACS Left Atrium Major [place] 4.2 cm CV PACS LA Area Sys [...] Volume 87 mL CV PACS MV Deceleration Hood 2.3 m/s2 CV PACS E Wave Deceleration [...] resultswithin the time period is included. Pathologist [facility] WBC 3.0(L) 4.8 - 10.8 K/mcL LAB HEMETOLOGY METHOD 11/26/2024 9:10 AM [facility] RBC 4.10(L) 4.50 - 5.50 M/mcL LAB HEMETOLOGY METHOD 11/26/2024 9:10 AM [facility] Hemoglobin 9.7(L) 13.5 - 17.5 g/dL LAB HEMETOLOGY METHOD 11/26/2024 9:10 AM [facility] Hematocrit 30.9(L) 42.0 - 54.0 % LAB HEMETOLOGY METHOD 11/26/2024 9:10 AM [facility] MCV 75.9(L) 79.0 - 98.0 FL LAB HEMETOLOGY METHOD 11/26/2024 9:10 AM [facility] MCH 23.8(L) 27.0 - 32.0 pcg LAB HEMETOLOGY METHOD 11/26/2024 9:10 AM [facility] MCHC 31.4(L) 32.0 - 37.0 g/dL LAB HEMETOLOGY METHOD 11/26/2024 9:10 AM [facility] RDW 15.4(H) 11.0 - 15.0 % LAB HEMETOLOGY METHOD 11/26/2024 9:10 AM [facility] Platelets 73(L) 130 - 400 K/mcL LAB HEMETOLOGY METHOD 11/26/2024 9:10 AM [facility] Comment:previously verified by slide MPV 11.3(H) 7.0 - 11.0 FL LAB HEMETOLOGY METHOD 11/26/2024 9:10 AM [facility] NRBC 0.0 <1.0 % LAB HEMETOLOGY METHOD 11/26/2024 9:10 AM [facility] NRBC Absolute 0.00 <0.10 K/mcL LAB HEMETOLOGY METHOD 11/26/2024 9:10 AM [facility] Neutrophils Relative 55.2 % LAB HEMETOLOGY METHOD 11/26/2024 9:10 AM [facility] Lymphocytes Relative 23.9 % LAB HEMETOLOGY METHOD 11/26/2024 9:10 AM [facility] Monocytes Relative 15.2 % LAB HEMETOLOGY METHOD 11/26/2024 9:10 AM [facility] Eosinophils Relative 3.7 % LAB HEMETOLOGY METHOD 11/26/2024 9:10 AM [facility] Basophils Relative 1.7 % LAB HEMETOLOGY METHOD 11/26/2024 9:10 AM [facility] Immature Granulocytes Relative 0.3 % LAB HEMETOLOGY METHOD 11/26/2024 9:10 AM [facility] Neutrophils Absolute 1.64 1.50 - 7.00 K/mcL LAB HEMETOLOGY METHOD 11/26/2024 9:10 AM [facility] Lymphocytes Absolute 0.71(L) 1.00 - 5.00 K/mcL LAB HEMETOLOGY METHOD 11/26/2024 9:10 AM [facility] Monocytes Absolute 0.45 0.20 - 1.00 K/mcL LAB HEMETOLOGY METHOD 11/26/2024 9:10 AM EDT [facility] Eosinophils Absolute 0.11 0.00 - 0.50 K/mcL LAB HEMETOLOGY METHOD 11/26/2024 9:10 AM EDT [facility] Basophils Absolute 0.05 0.00 - 0.20 K/[facility] LAB HEMETOLOGY METHOD 11/26/2024 9:10 AM EDT [facility] Immature Granulocytes Absolute 0.01 0.00 - 0.03 K/mcL LAB HEMETOLOGY METHOD 11/26/2024 9:10 AM EDT [facility] Blood Venous blood specimen / Unknown Venipuncture / Unknown 11/26/2024 8:16 AM EDT 11/26/2024 8:41 AM EDT us Trung Cheney MD LAB BLOOD ORDERABLES Fi nal Result Performing Organization Address City/[facility]/ZIP Co de Phone Number [facility] [address] [place] [address], [place] [phone] * Phosphorus (11/26/2024 8:16 AM EDT) Phosphorus 3.7 2.5 - 4.5 mg/dL LAB CHEMISTRY METHOD 11/26/2024 9:46 AM EDT [facility] Blood Venous blood specimen / Unknown Venipuncture / Unknown 11/26/2024 8:16 AM EDT 11/26/2024 8:41 AM EDT Trung Cheney MD LAB BLOOD ORDERABLES Fi nal Result Performing Organization Address City/[facility]/ZIP Co de Phone Number [facility] [address] [place] [address], [place] [phone] * (ABNORMAL) Magnesium (11/26/2024 8:16 AM EDT) Only the most recent of2 resultswithin the time period is included. Magnesium 1.8(L) 1.9 - 2.6 mg/dL LAB CHEMISTRY METHOD 11/26/2024 9:46 AM [facility] Blood Venous blood specimen / Unknown Venipuncture / Unknown 11/26/2024 8:16 AM EDT 11/26/2024 8:41 AM EDT Trung Cheney MD LAB BLOOD ORDERABLES Fi nal Result [facility] [address] [place] [address], * (ABNORMAL) Basic metabolic panel (11/26/2024 8:16 AM EDT) Sodium 137 133 - 145 mmol/L LAB CHEMISTRY METHOD 11/26/2024 9:46 AM [facility] Potassium 3.1(L) 3.5 - 5.5 mmol/L LAB CHEMISTRY METHOD 11/26/2024 9:46 AM [facility] Chloride 101 96 - 110 mmol/L LAB CHEMISTRY METHOD 11/26/2024 9:46 AM [facility] CO2 29 21 - 32 mmol/L LAB CHEMISTRY METHOD 11/26/2024 9:46 AM [facility] Anion Gap 7 3 - 11 LAB CHEMISTRY METHOD 11/26/2024 9:46 AM [facility] Glucose 105(H) 70 - 100 mg/dL LAB CHEMISTRY METHOD 11/26/2024 9:46 AM [facility] BUN 8 5 - 25 mg/dL LAB CHEMISTRY METHOD 11/26/2024 9:46 AM [facility] Creatinine 0.70 0.70 - 1.30 mg/dL LAB CHEMISTRY METHOD 11/26/2024 9:46 AM [facility] eGFR 110 >=60 mL/min/1. 73m2 LAB CHEMISTRY METHOD 11/26/2024 9:46 AM EDT [facility] Comment:Calculation based on the Chronic Kidney Disease Epidemiology Collaboration (CKD-EPI) equation refit without adjustment for race. BUN/Creatinine Ratio 11.4 LAB CHEMISTRY METHOD 11/26/2024 9:46 AM EDT [facility] Calcium 8.5 8.5 - 10.5 mg/dL LAB CHEMISTRY METHOD 11/26/2024 9:46 AM EDT [facility] Blood Venous blood specimen / Unknown Venipuncture / Unknown 11/26/2024 8:16 AM EDT 11/26/2024 8:41 AM EDT us Trung Cheney MD LAB BLOOD ORDERABLES Fi nal Result Performing Organization Address [facility]/ZIP Co de Phone Number [facility] [address] [place] [address], * Blood Culture, Peripheral Draw #2 (11/25/2024 3:53 PM EDT) Only the most recent of4 resultswithin the time period is included. Culture, Blood No growth at 5 days LAB MICROBIOLOGY METHOD 11/30/2024 5:01 PM EDT [facility] Blood Venous blood specimen / Unknown Venipuncture / Unknown 11/25/2024 3:53 PM EDT 11/25/2024 4:00 PM EDT Trung Cheney MD LAB MICROBIOLOGY - GENE RAL ORDERABLES Final Result Performing Organization Address [facility]/ZIP Co de Phone Number [facility] [address] [place] [address], [place] [phone] * (ABNORMAL) Potassium (11/25/2024 8:11 AM EDT) Potassium 3.0(L) 3.5 - 5.5 mmol/L LAB CHEMISTRY METHOD 11/25/2024 9:10 AM EDT [facility] Blood Venous blood specimen / Unknown Venipuncture / Unknown 11/25/2024 8:11 AM EDT 11/25/2024 8:35 AM EDT Trung Cheney MD LAB BLOOD ORDERABLES Fi nal Result Performing Organization Address City/[facility]/ZIP Co de Phone Number [facility] [address] [place] [address], [place] [phone] * Lavender tube (11/25/2024 8:08 AM EDT) [facility] Extra Tube Hold for add-ons. 11/25/2024 10:01 AM EDT [facility] Comment:Auto resulted. Blood Venous blood specimen / Unknown 11/25/2024 8:08 AM EDT 11/25/2024 8:40 AM EDT Trung Cheney MD LAB BLOOD ORDERABLES Fi nal Result Performing Organization Address City/[facility]/ZIP Co de Phone Number [facility] [address] [place] [address], [place] [phone] * Respiratory virus panel molecular study (11/24/2024 8:52 AM EDT) [facility] Adenovirus Detection by PCR Not Detected Not Detected LAB MICROBIOLOGY METHOD 11/24/2024 10:38 AM EDT [facility] Influenza A PCR Not Detected Not Detected LAB MICROBIOLOGY METHOD 11/24/2024 10:38 AM EDT [facility] Influenza B PCR Not Detected Not Detected LAB MICROBIOLOGY METHOD 11/24/2024 10:38 AM EDT [facility] Coronavirus 229E Not Detected Not Detected LAB MICROBIOLOGY METHOD 11/24/2024 10:38 AM EDT [facility] Coronavirus HKU1 Not Detected Not Detected LAB MICROBIOLOGY METHOD 11/24/2024 10:38 AM EDT [facility] Coronavirus OC43 Not Detected Not Detected LAB MICROBIOLOGY METHOD 11/24/2024 10:38 AM EDT [facility] Coronavirus NL63 Not Detected Not Detected LAB MICROBIOLOGY METHOD 11/24/2024 10:38 AM EDT [facility] Parainfluenza Virus 1 Not Detected Not Detected LAB MICROBIOLOGY METHOD 11/24/2024 10:38 AM EDT [facility] Parainfluenza Virus 2 Not Detected Not Detected LAB MICROBIOLOGY METHOD 11/24/2024 10:38 AM EDT [facility] Parainfluenza Virus 3 Not Detected Not Detected LAB MICROBIOLOGY METHOD 11/24/2024 10:38 AM EDT [facility] Parainfluenza Virus 4 Not Detected Not Detected LAB MICROBIOLOGY METHOD 11/24/2024 10:38 AM EDT [facility] RSV PCR Not Detected Not Detected LAB MICROBIOLOGY METHOD 11/24/2024 10:38 AM EDT [facility] Human Metapneumovirus A and B Not Detected Not Detected LAB MICROBIOLOGY METHOD 11/24/2024 10:38 AM EDT [facility] Rhinovirus/Entero virus Not Detected Not Detected LAB MICROBIOLOGY METHOD 11/24/2024 10:38 AM EDT [facility] Bordetella pertussis Not Detected Not Detected LAB MICROBIOLOGY METHOD 11/24/2024 10:38 AM EDT [facility] Bordetella parapertussis Not Detected Not Detected LAB MICROBIOLOGY METHOD 11/24/2024 10:38 AM EDT [facility] Mycoplasma pneumo by PCR Not Detected Not Detected LAB MICROBIOLOGY METHOD 11/24/2024 10:38 AM EDT [facility] Chlamydia pneumoniae Not Detected Not Detected LAB MICROBIOLOGY METHOD 11/24/2024 10:38 AM EDT [facility] SARS COV-2 Not Detected Not Detected LAB MICROBIOLOGY METHOD 11/24/2024 10:38 AM EDT [facility] Swab Both anterior nares / Unknown Non-blood Collection / Unknown 11/24/2024 8:52 AM EDT 11/24/2024 9:39 AM EDT Narrative [facility] - 11/24/2024 10:38 AM EDT Testing was performed using the [employer] Respiratory Pathogen PCR Assay. All results must [...] GENERAL ORDERABLES Final Result Performing Organization Address City/[facility]/ZIP Co de Phone Number [facility] [address] [place] [address], [place] [phone] * Prothrombin time with INR (11/24/2024 5:36 AM EDT) Pathologist [facility] Protime 12.1 10.6 - 13.9 sec LAB COAGULATION METHOD 11/24/2024 6:19 AM EDT [facility] INR 1.0 LAB COAGULATION METHOD 11/24/2024 6:19 AM EDT [facility] Blood Venous blood specimen / Unknown Venipuncture / Unknown 11/24/2024 5:36 AM EDT 11/24/2024 6:10 AM EDT us Rick Huddleston MD LAB BLOOD ORDERABLES Final Result Performing Organization Address City/[facility]/ZIP Co de Phone Number [facility] [address] [place] [address], [place] [phone] * (ABNORMAL) Comprehensive metabolic panel (11/24/2024 5:36 AM EDT) Only the most recent of2 resultswithin the time period is included. Sodium 134 133 - 145 mmol/L LAB CHEMISTRY METHOD 11/24/2024 7:03 AM [facility] Potassium 3.3(L) 3.5 - 5.5 mmol/L LAB CHEMISTRY METHOD 11/24/2024 7:03 AM [facility] Chloride 98 96 - 110 mmol/L LAB CHEMISTRY METHOD 11/24/2024 7:03 AM [facility] CO2 27 21 - 32 mmol/L LAB CHEMISTRY METHOD 11/24/2024 7:03 AM [facility] Anion Gap 9 3 - 11 LAB CHEMISTRY METHOD 11/24/2024 7:03 AM [facility] Glucose 93 70 - 100 mg/dL LAB CHEMISTRY METHOD 11/24/2024 7:03 AM [facility] BUN 9 5 - 25 mg/dL LAB CHEMISTRY METHOD 11/24/2024 7:03 AM [facility] Creatinine 0.70 0.70 - 1.30 mg/dL LAB CHEMISTRY METHOD 11/24/2024 7:03 AM [facility] eGFR 110 >=60 mL/min/1. 73m2 LAB CHEMISTRY METHOD 11/24/2024 7:03 AM [facility] Comment:Calculation based on the Chronic Kidney Disease Epidemiology Collaboration (CKD-EPI) equation refit without adjustment for race. BUN/Creatinine Ratio 12.9 LAB CHEMISTRY METHOD 11/24/2024 7:03 AM [facility] Calcium 9.1 8.5 - 10.5 mg/dL LAB CHEMISTRY METHOD 11/24/2024 7:03 AM [facility] AST (SGOT) 203(H) 10 - 42 unit/L LAB CHEMISTRY METHOD 11/24/2024 7:03 AM [facility] ALT (SGPT) 91(H) 10 - 60 unit/L LAB CHEMISTRY METHOD 11/24/2024 7:03 AM [facility] Alkaline Phosphatase 115 42 - 121 unit/L LAB CHEMISTRY METHOD 11/24/2024 7:03 AM EDT [facility] Total Protein 8.1(H) 6.0 - 8.0 g/dL LAB CHEMISTRY METHOD 11/24/2024 7:03 AM EDT [facility] Albumin 3.8 3.2 - 5.0 g/dL LAB CHEMISTRY METHOD 11/24/2024 7:03 AM EDT [facility] Total Bilirubin 0.9 0.0 - 1.4 mg/dL LAB CHEMISTRY METHOD 11/24/2024 7:03 AM T [facility] Blood Venous blood specimen / Unknown Venipuncture / Unknown 11/24/2024 5:36 AM EDT 11/24/2024 6:10 AM EDT us Sarah ESCALANTE LAB BLOOD ORDERABLES Final Resu lt [facility] [address] [place] [address], * (ABNORMAL) Drug abuse screen 8a panel, urine (11/23/2024 11:35 PM EDT) Amphetamine Screen, Ur Negative Negative LAB CHEMISTRY METHOD 5 12:15 AM T [facility] Comment:Certain OTC medicati ons containing ephedrine, phenylephrine, pseudoephedrine and phenylpropanolamine can cause false positive results. Barbiturate Screen, Ur Positive(A ) Negative LAB CHEMISTRY METHOD 5 12:15 AM EDT [facility] Benzodiazepine Screen, Ur Positive(A ) Negative LAB CHEMISTRY METHOD 5 12:15 AM T [facility] Cocaine Screen, Ur Negative Negative LAB CHEMISTRY METHOD 5 12:15 AM EDT [facility] Opiate Screen, Ur Negative Negative LAB CHEMISTRY METHOD 5 12:15 AM EDT [facility] Cannabinoid (THC) Screen, Ur Negative Negative LAB CHEMISTRY METHOD 12:15 AM EDT [facility] Comment:Specimens from patie nts taking pantoprazole sodium (Protonix) have been shown to produce false positive results. Oxycodone Screen, Ur Negative Negative LAB CHEMISTRY METHOD 12:15 AM EDT [facility] Fentanyl, Ur Negative Negative LAB CHEMISTRY METHOD 12:15 AM EDT [facility] Urine Urine specimen obtained by clean catch procedure / Unknown Non-blood Collection / Unknown 11/23/2024 11:35 PM EDT 11/23/2024 11:47 PM EDT Narrative [facility] - 11/24/2024 12:15 AM EDT Assay cutoffs: Amphetamines 1000 ng/mL Barbiturates 200 ng/mL Benzodiazepines 200 ng/mL Cocaine 300 ng/mL Fentanyl 1 ng/mL Opiates 300 ng/mL Oxycodone 100 ng/mL THC 50 ng/mL Semi-quantitative assay for screening purposes only. Unconfirmed screening result should not be used for non-medical purposes. *ALTERNATE METHOD CONFIRMATION DONE UPON REQUEST ONLY* Rick Huddleston MD LAB URINE ORDERABLES Final Result [facility] [address] [place] [address], * Buprenorphine screen, urine (11/23/2024 11:35 PM EDT) Buprenorphine Screen Urine Negative Negative LAB CHEMISTRY METHOD 11/24/2024 12:15 AM EDT [facility] Urine Urine specimen obtained by clean catch procedure / Unknown Non-blood Collection / Unknown 11/23/2024 11:35 PM EDT 11/23/2024 11:47 PM EDT Narrative [facility] - 11/24/2024 12:15 AM EDT Assay cutoff 5 ng/mL Semi-quantitative assay for screening purposes only. Unconfirmed screening result should not be used for non-medical purposes. *ALTERNATE METHOD CONFIRMATION DONE UPON REQUEST ONLY* us Rick Huddleston MD LAB URINE ORDERABLES Final Result Performing Organization Address [facility]/ZIP Co de Phone Number [facility] [address] [place] [address], [place] [phone] * Methadone, urine (11/23/2024 11:35 PM EDT) Methadone Screen, Urine Negative Negative LAB CHEMISTRY METHOD 11/24/2024 12:15 AM EDT [facility] Comment: Assay cutoff 300 ng/mL Semi-quantitative assay for screening purposes only. Unconfirmed screening result should not be used for non-medical purposes. *ALTERNATE METHOD CONFIRMATION DONE UPON REQUEST ONLY* Urine Urine specimen obtained by clean catch procedure / Unknown Non-blood Collection / Unknown 11/23/2024 11:35 PM EDT 11/23/2024 11:47 PM EDT us Rick Huddleston MD LAB URINE ORDERABLES Final Result Performing Organization Address [facility]/ZIP Co de Phone Number [facility] [address] [place] [address], [place] [phone] * Phencyclidine, urine (11/23/2024 11:35 PM EDT) PCP Scrn, Ur Negative Negative LAB CHEMISTRY METHOD 11/24/2024 12:15 AM EDT [facility] Comment: Assay cutoff 25 ng/mL Semi-quantitative assay for screening purposes only. Unconfirmed screening result should not be used for non-medical purposes. *ALTERNATE METHOD CONFIRMATION DONE UPON REQUEST ONLY* Urine Urine specimen obtained by clean catch procedure / Unknown Non-blood Collection / Unknown 11/23/2024 11:35 PM EDT 11/23/2024 11:47 PM EDT us Rick Huddleston MD LAB URINE ORDERABLES Final Result Performing Organization Address [facility] Co de Phone Number [facility] [address] [place] [address], [place] [phone] * Troponin I high sensitivity (11/23/2024 9:17 PM EDT) Only the most recent of2 resultswithin the time period is included. Pathologist [facility] High Sensitivity Troponin I 7 <=79 ng/L LAB CHEMISTRY METHOD 11/23/2024 9:58 PM EDT [facility] Blood Venous blood specimen / Unknown Venipuncture / Unknown 11/23/2024 9:17 PM EDT 11/23/2024 9:22 PM EDT Narrative [facility] - 11/23/2024 9:58 PM EDT High levels of biotin in samples may falsely decrease hsTroponin values. Use caution when interpreting hsTroponin results in patients taking biotin who exhibit renal impairment (eGFR <60) or in patients taking more than 20 mg/day of biotin. Rick Huddleston MD LAB BLOOD ORDERABLES Final Result Performing Organization Address [facility] de Phone Number [facility] [address] [place] [address], [place] [phone] * Lactate, with reflex (11/23/2024 8:13 PM EDT) [facility] LACTIC ACID 1.8 0.4 - 2.0 mmol/L LAB CHEMISTRY METHOD 11/23/2024 8:59 PM EDT [facility] Blood Venous blood specimen / Unknown Venipuncture / Unknown 11/23/2024 8:13 PM EDT 11/23/2024 8:20 PM EDT Jasmine ESCALANTE LAB BLOOD ORDERABLES Fin al Result Performing Organization Address [facility] Co de Phone Number [facility] [address] [place] [address], [place] [phone] * (ABNORMAL) Blood culture pathogens molecular study (11/23/2024 8:13 PM EDT) Staphylococcus species Detected (A) Not Detected LAB MICROBIOLOGY METHOD 11/25/2024 4:20 PM EDT [facility] Blood Venous blood specimen / Unknown Venipuncture / Unknown 11/23/2024 8:13 PM EDT 11/23/2024 8:21 PM EDT us Jasmine ESCALANTE LAB MICROBIOLOGY - GENER AL ORDERABLES Final Result [facility] [address] [place] [address], [place] [phone] * CT Head wo Contrast (11/23/2024 7:53 [...] Clifford Mcmahon MD on 11/23/2024 20:19:36 Jasmine Gomez Giuliano ESCALANTE IMG CT PROCEDURES Final Result * [...] Signed Date: 11/23/2024 20:48 ET Workstation ID: [id number] Transcribed By: Self Edit Transcribed Date: 11/23/2024 [...] Signed Date: 11/23/2024 20:48 ET Workstation ID: [id number] Transcribed By: Self Edit Transcribed Date: 11/23/2024 20:47 ET Jasmine ESCALANTE IMG XR PROCEDURES Final Result * ECG 12 lead (11/23/2024 4:58 PM EDT) Ventricular Rate ECG 78 BPM GEMUSE Atrial Rate 78 BPM GEMUSE P-R Interval 164 ms GEMUSE QRS Duration 90 ms GEMUSE Q-T Interval 424 ms GEMUSE QTc 483 ms GEMUSE R [place] 176 degrees GEMUSE T [place] -177 degrees GEMUSE ECG Interpretation Normal sinus [...] to confirmation (11/23/2024 4:58 PM EDT) Pathologist [facility] Hepatitis B Surface Ag Negative Negative LAB CHEMISTRY METHOD 11/23/2024 10:17 PM EDT [facility] Hepatitis A Antibody IgM Negative Negative LAB CHEMISTRY METHOD 11/23/2024 10:17 PM EDT [facility] Hep B Core IgM Negative Negative LAB CHEMISTRY METHOD 11/23/2024 10:17 PM EDT [facility] Hepatitis C Antibody Negative Negative LAB CHEMISTRY METHOD 11/23/2024 10:17 PM EDT [facility] Blood Venous blood specimen / Unknown Venipuncture / Unknown 11/23/2024 4:58 PM EDT 11/23/2024 5:09 PM EDT Rick Huddleston MD LAB BLOOD ORDERABLES Final Result Performing Organization Address [facility]/ZIP Co de Phone Number [facility] [address] [place] [address], [place] [phone] * Iron and TIBC (11/23/2024 4:58 PM EDT) Iron 106 50 - 160 mcg/dL LAB CHEMISTRY METHOD 11/23/2024 9:20 PM EDT [facility] TIBC 257 250 - 450 mcg/dL LAB CHEMISTRY METHOD 11/23/2024 9:20 PM EDT [facility] Iron Saturation 41 20 - 50 % LAB CHEMISTRY METHOD 11/23/2024 9:20 PM EDT [facility] Blood Venous blood specimen / Unknown Venipuncture / Unknown 11/23/2024 4:58 PM EDT 11/23/2024 5:09 PM EDT Rick Huddleston MD LAB BLOOD ORDERABLES Final Result Performing Organization Address [facility] Co de Phone Number [facility] [address] [place] [address], [place] [phone] * (ABNORMAL) Prolactin (11/23/2024 4:58 PM EDT) Prolactin 22.20(H) 2.50 - 17.40 ng/mL LAB CHEMISTRY METHOD 11/23/2024 5:48 PM EDT [facility] Blood Venous blood specimen / Unknown Venipuncture / Unknown 11/23/2024 4:58 PM EDT 11/23/2024 5:09 PM EDT Lisseth Leary MD LAB BLOOD ORDERABLES Fin al Result Performing Organization Address [facility]/ZIP Co de Phone Number [facility] [address] [place] [address], [place] [phone] * (ABNORMAL) Lipase (11/23/2024 4:58 PM EDT) Lipase 125(H) 13 - 75 unit/L LAB CHEMISTRY METHOD 11/23/2024 5:48 PM EDT [facility] Blood Venous blood specimen / Unknown Venipuncture / Unknown 11/23/2024 4:58 PM EDT 11/23/2024 5:09 PM EDT Lisseth Leary MD LAB BLOOD ORDERABLES Fin al Result Performing Organization Address [facility]/ZIP Co de Phone Number [facility] [address] [place] [address], [place] [phone] * (ABNORMAL) Ethanol (11/23/2024 4:58 PM EDT) Ethanol Level 11(H) 0 - 10 mg/dL LAB CHEMISTRY METHOD 11/23/2024 5:48 PM EDT [facility] Blood Venous blood specimen / Unknown Venipuncture / Unknown 11/23/2024 4:58 PM EDT 11/23/2024 5:09 PM EDT Lisseth Leary MD LAB BLOOD ORDERABLES Fin al Result Performing Organization Address [facility]/ZIP Co de Phone Number [facility] [address] [place] [address], [place] [phone] * (ABNORMAL) Acetaminophen level (11/23/2024 4:58 PM EDT) Acetaminophen Level <2.0(L) 10.0 - 30.0 mcg/mL LAB CHEMISTRY METHOD 11/23/2024 6:19 PM EDT [facility] Blood Venous blood specimen / Unknown Venipuncture / Unknown 11/23/2024 4:58 PM EDT 11/23/2024 5:09 PM EDT Lisseth Leary MD LAB BLOOD ORDERABLES Fin al Result Performing Organization Address City/[facility]/ZIP Co de Phone Number [facility] [address] [place] [address], [place] [phone] * Salicylate level (11/23/2024 4:58 PM EDT) Salicylate Level 2.0 2.0 - 29.0 mg/dL LAB CHEMISTRY METHOD 11/23/2024 5:48 PM EDT [facility] Blood Venous blood specimen / Unknown Venipuncture / Unknown 11/23/2024 4:58 PM EDT 11/23/2024 5:09 PM EDT Lisseth Leary MD LAB BLOOD ORDERABLES Fin al Result Performing Organization Address [facility]/ZIP Co de Phone Number [facility] [address] [place] [address], [place] [phone] * (ABNORMAL) POCT Glucose, blood (11/23/2024 4:54 PM EDT) Glucose POCT 157(H) 70 - 100 mg/dL 11/23/2024 5:03 PM EDT [facility] Blood Capillary blood specimen / Unknown 11/23/2024 4:54 PM EDT 11/23/2024 5:04 PM EDT Generic Provider Poct LAB POINT OF CARE TEST DOCKED DEVICE UNSOLICITED RESULTS Final Result Performing Organization Address 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
[2024-12-02 18:04] LABS: Uric Acid 6.8 mg/dL (3.4-7.0)
== END 2024-12-02 14:58 | disposition home or self-care (01) ==
LOC: HO.HMGCLDS 14:57
PROVIDERS: Visit Provider Physician Assistant Medical
DX: M79.642 Pain in left hand (principal)
CPT/HCPCS: 36415; 84550

== ENCOUNTER 2025-01-28 13:19 | Outpatient (REF) | payer OTHER, SELFPAY ==
--- NOTE | ~2025-01-28 | XR_ITS ---
EXAMINATION: XR KNEE 4 OR MORE VIEWS RIGHT HISTORY: M25.461 - Effusion, right knee COMPARISON: There are no prior studies available for comparison. FINDINGS: Four views of the right knee are submitted. Osseous mineralization is normal. There is no fracture or dislocation. There is mild narrowing of the medial compartment. There is a moderate joint effusion. XR/XR knee RT 4V IMPRESSION: Moderate joint effusion. Mild narrowing of the medial compartment. Electronically signed by: Jeff Fernandez MD 01/28/2025 02:33 PM EDT
== END 2025-01-28 13:20 | disposition home or self-care (01) ==
LOC: HO.HMGCX 13:19
PROVIDERS: PCP Nurse Practitioner Family; Visit Provider Nurse Practitioner Family
DX: M25.461 Effusion, right knee (principal)
CPT/HCPCS: 73564

== ENCOUNTER 2025-01-28 13:19 | Outpatient (AMB) | payer OTHER, SELFPAY ==
--- OUTSIDE RECORDS SUMMARY | 2025-01-28 13:21 | XMS_ITS | Clinical Summary ---
Author Organization [facility] Address [address] [place] [address] Phone Care Team Providers Care Subscription Agent Name Role Phone Physician, No Pcp Primary Care Provider Unavaila ble Allergies No known active allergies Medications amLODIPine (NORVASC) 10 mg tablet Take 1 tablet (10 mg total) by mouth 1 (one) time each day. 09/02/2024 Active metoprolol succinate (TOPROL-XL) 100 mg 24 hr tablet Take 1 tablet (100 mg total) by mouth 1 (one) time each day. 09/28/2024 Active Active Problems No known active problems Resolved Problems Problem Noted Date Diagnosed Date Resolved Date Alcohol withdrawal seizure w ithout complication (CMS/[facility] V24, CMS/[facility]ER[facility] V28) 11/23/2024 11/26/2024 Encounters Date Type Department Care Team Description 11/23/2024 4:43 PM EDT - 11/26/2024 3:34 PM EDT Hospital Encounter [facility] [address] [place] [address] Lisseth Leary MD Jones, Christopher, MD Seralathan, Manikandan, MD Alcohol withdrawal seizure without complication (CMS/HCC V24, CMS/[facility]ER[facility] V28) (Primary Dx); Bacteremia; Hypomagnesemia; [...] for your loved ones. For example, child and adolescent therapist or elderly care for an older adult? [...] Panel) 05/14/2022 Colorectal Cancer Screening: Colonoscopy 05/14/2022 HIV Screening 05/14/2022 COVID-19 Vaccine (3 - 2023-2 5 season) 2024 11/01/2020, 10/11/2020 Depression Screening 06/16/2024 Influenza Vaccine (#1) 2025 Social Influencers of Health Screening 11/24/2025 [...] PM EDT POCT GLUCOSE BLOOD Routine 11/23/2024 4 :54 PM EDT from Last 3 Months Results * ECG-Annotated (11/27/2024) us Provider Onbase MD ECG ORDERABLES Final Result * (ABNORMAL) TRANSTHORACIC ECHOCARDIOGRAM (TTE) COMPLETE (11/26/2024 10:19 AM EDT) Left Atrium Minor Valier 5.0 cm CV PACS Left Atrium Major Valier 4.2 cm CV PACS LA Area Sys [...] Volume 87 mL CV PACS MV Deceleration Chase 2.3 m/s2 CV PACS E Wave Deceleration [...] Trung Cheney MD CV ECHO PROCEDURES Chanelle kenneth Result * (ABNORMAL) CBC auto differential (11/26/2024 8:16 AM EDT) Only the most recent of3 resultswithin the time period is included. WBC 3.0(L) 4.8 - 10.8 K/mcL LAB HEMETOLOGY METHOD 11/26/2024 9:10 AM [facility] RBC 4.10(L) 4.50 - 5.50 M/mcL LAB HEMETOLOGY METHOD 11/26/2024 9:10 AM [facility] Hemoglobin 9.7(L) 13.5 - 17.5 g/dL LAB HEMETOLOGY METHOD 11/26/2024 9:10 AM [facility] Hematocrit 30.9(L) 42.0 - 54.0 % LAB HEMETOLOGY METHOD 11/26/2024 9:10 AM [facility] MCV 75.9(L) 79.0 - 98.0 FL LAB HEMETOLOGY METHOD 11/26/2024 9:10 AM [facility] MCH 23.8(L) 27.0 - 32.0 pcg LAB HEMETOLOGY METHOD 11/26/2024 9:10 AM [facility] MCHC 31.4(L) 32.0 - 37.0 g/dL LAB HEMETOLOGY METHOD 11/26/2024 9:10 AM [facility] RDW 15.4(H) 11.0 - 15.0 % LAB HEMETOLOGY METHOD 11/26/2024 9:10 AM [facility] Platelets 73(L) 130 - 400 K/mcL LAB HEMETOLOGY METHOD 11/26/2024 9:10 AM [facility] Comment:previously verified by slide MPV 11.3(H) 7.0 - 11.0 FL LAB HEMETOLOGY METHOD 11/26/2024 9:10 AM [facility] NRBC 0.0 <1.0 % LAB HEMETOLOGY METHOD 11/26/2024 9:10 AM [facility] NRBC Absolute 0.00 <0.10 K/mcL LAB HEMETOLOGY METHOD 11/26/2024 9:10 AM [facility] Neutrophils Relative 55.2 % LAB HEMETOLOGY METHOD 11/26/2024 9:10 AM [facility] Lymphocytes Relative 23.9 % LAB HEMETOLOGY METHOD 11/26/2024 9:10 AM [facility] Monocytes Relative 15.2 % LAB HEMETOLOGY METHOD 11/26/2024 9:10 AM [facility] Eosinophils Relative 3.7 % LAB HEMETOLOGY METHOD 11/26/2024 9:10 AM [facility] Basophils Relative 1.7 % LAB HEMETOLOGY METHOD 11/26/2024 9:10 AM [facility] Immature Granulocytes Relative 0.3 % LAB HEMETOLOGY METHOD 11/26/2024 9:10 AM [facility] Neutrophils Absolute 1.64 1.50 - 7.00 K/mcL LAB HEMETOLOGY METHOD 11/26/2024 9:10 AM EDT [facility] Lymphocytes Absolute 0.71(L) 1.00 - 5.00 K/mcL LAB HEMETOLOGY METHOD 11/26/2024 9:10 AM EDT [facility] Monocytes Absolute 0.45 0.20 - 1.00 K/mcL LAB HEMETOLOGY METHOD 11/26/2024 9:10 AM EDT [facility] Eosinophils Absolute 0.11 0.00 - 0.50 K/[facility] LAB HEMETOLOGY METHOD 11/26/2024 9:10 AM EDT [facility] Basophils Absolute 0.05 0.00 - 0.20 K/[facility] LAB HEMETOLOGY METHOD 11/26/2024 9:10 AM EDT [facility] Immature Granulocytes Absolute 0.01 0.00 - 0.03 K/[facility] LAB HEMETOLOGY METHOD 11/26/2024 9:10 AM EDT [facility] Blood Venous blood specimen / Unknown Venipuncture / Unknown 11/26/2024 8:16 AM EDT 11/26/2024 8:41 AM EDT us Trung Cheney MD LAB BLOOD ORDERABLES Fi nal Result Performing Organization Address City/[facility] Co de Phone Number [facility] [address] [place] [address], * Phosphorus (11/26/2024 8:16 AM EDT) Phosphorus 3.7 2.5 - 4.5 mg/dL LAB CHEMISTRY METHOD 11/26/2024 9:46 AM EDT [facility] Blood Venous blood specimen / Unknown Venipuncture / Unknown 11/26/2024 8:16 AM EDT 11/26/2024 8:41 AM EDT us Trung Cheney MD LAB BLOOD ORDERABLES Fi nal Result [facility] [address] [place] [address], * (ABNORMAL) Magnesium (11/26/2024 8:16 AM EDT) Only the most recent of2 resultswithin the time period is included. Pathologist [facility] Magnesium 1.8(L) 1.9 - 2.6 mg/dL LAB CHEMISTRY METHOD 11/26/2024 9:46 AM EDT [facility] Blood Venous blood specimen / Unknown Venipuncture / Unknown 11/26/2024 8:16 AM EDT 11/26/2024 8:41 AM EDT Trung Cheney MD LAB BLOOD ORDERABLES Fi nal Result Performing Organization Address [facility]/ZIP Co de Phone Number [facility] [address] [place] [address], * (ABNORMAL) Basic metabolic panel (11/26/2024 8:16 AM EDT) Pathologist [facility] Sodium 137 133 - 145 mmol/L LAB CHEMISTRY METHOD 11/26/2024 9:46 AM [facility] Potassium 3.1(L) 3.5 - 5.5 mmol/L LAB CHEMISTRY METHOD 11/26/2024 9:46 AM [facility] Chloride 101 96 - 110 mmol/L LAB CHEMISTRY METHOD 11/26/2024 9:46 AM [facility] CO2 29 21 - 32 mmol/L LAB CHEMISTRY METHOD 11/26/2024 9:46 AM [facility] Anion Gap 7 3 - 11 LAB CHEMISTRY METHOD 11/26/2024 9:46 AM [facility] Glucose 105(H) 70 - 100 mg/dL LAB CHEMISTRY METHOD 11/26/2024 9:46 AM [facility] BUN 8 5 - 25 mg/dL LAB CHEMISTRY METHOD 11/26/2024 9:46 AM EDT [facility] Creatinine 0.70 0.70 - 1.30 mg/dL LAB CHEMISTRY METHOD 11/26/2024 9:46 AM EDT [facility] eGFR 110 >=60 mL/min/1. 73m2 LAB CHEMISTRY METHOD 11/26/2024 9:46 AM EDT [facility] Comment:Calculation based on the Chronic Kidney Disease Epidemiology Collaboration (CKD-EPI) equation refit without adjustment for race. BUN/Creatinine Ratio 11.4 LAB CHEMISTRY METHOD 11/26/2024 9:46 AM EDT [facility] Calcium 8.5 8.5 - 10.5 mg/dL LAB CHEMISTRY METHOD 11/26/2024 9:46 AM EDT [facility] Blood Venous blood specimen / Unknown Venipuncture / Unknown 11/26/2024 8:16 AM EDT 11/26/2024 8:41 AM EDT Trung Cheney MD LAB BLOOD ORDERABLES Fi nal Result Performing Organization Address City/[facility]/ZIP Co de Phone Number [facility] [address] [place] [address], [place] [phone] * Blood Culture, Peripheral Draw #2 (11/25/2024 3:53 PM EDT) Only the most recent of4 resultswithin the time period is included. Culture, Blood No growth at 5 days LAB MICROBIOLOGY METHOD 11/30/2024 5:01 PM EDT [facility] Blood Venous blood specimen / Unknown Venipuncture / Unknown 11/25/2024 3:53 PM EDT 11/25/2024 4:00 PM EDT Trung Cheney MD LAB MICROBIOLOGY - GENE RAL ORDERABLES Final Result [facility] [address] [place] [address], [place] [phone] * (ABNORMAL) Potassium (11/25/2024 8:11 AM EDT) [facility] Potassium 3.0(L) 3.5 - 5.5 mmol/L LAB CHEMISTRY METHOD 11/25/2024 9:10 AM EDT [facility] Blood Venous blood specimen / Unknown Venipuncture / Unknown 11/25/2024 8:11 AM EDT 11/25/2024 8:35 AM EDT us Trung Cheney MD LAB BLOOD ORDERABLES Fi nal Result Performing Organization Address [facility]/ZIP Co de Phone Number [facility] [address] [place] [address], * Lavender tube (11/25/2024 8:08 AM EDT) [facility] Extra Tube Hold for add-ons. 11/25/2024 10:01 AM EDT [facility] Comment:Auto resulted. Blood Venous blood specimen / Unknown 11/25/2024 8:08 AM EDT 11/25/2024 8:40 AM EDT us Trung Cheney MD LAB BLOOD ORDERABLES Fi nal Result [facility] [address] [place] [address], [place] [phone] * Respiratory virus panel molecular study (11/24/2024 8:52 AM EDT) [facility] Adenovirus Detection by PCR Not Detected Not Detected LAB MICROBIOLOGY METHOD 11/24/2024 10:38 AM EDT [facility] Influenza A PCR Not Detected Not Detected LAB MICROBIOLOGY METHOD 11/24/2024 10:38 AM EDT [facility] Influenza B PCR Not Detected Not Detected LAB MICROBIOLOGY METHOD 11/24/2024 10:38 AM EDT [facility] Coronavirus 229E Not Detected Not Detected LAB MICROBIOLOGY METHOD 11/24/2024 10:38 AM EDT [facility] Coronavirus HKU1 Not Detected Not Detected LAB MICROBIOLOGY METHOD 11/24/2024 10:38 AM EDT [facility] Coronavirus OC43 Not Detected Not Detected LAB MICROBIOLOGY METHOD 11/24/2024 10:38 AM EDT [facility] Coronavirus NL63 Not Detected Not Detected LAB MICROBIOLOGY METHOD 11/24/2024 10:38 AM EDT [facility] Parainfluenza Virus 1 Not Detected Not Detected LAB MICROBIOLOGY METHOD 11/24/2024 10:38 AM EDT [facility] Parainfluenza Virus 2 Not Detected Not Detected LAB MICROBIOLOGY METHOD 11/24/2024 10:38 AM EDT [facility] Parainfluenza Virus 3 Not Detected Not Detected LAB MICROBIOLOGY METHOD 11/24/2024 10:38 AM EDT [facility] Parainfluenza Virus 4 Not Detected Not Detected LAB MICROBIOLOGY METHOD 11/24/2024 10:38 AM EDT [facility] RSV PCR Not Detected Not Detected LAB MICROBIOLOGY METHOD 11/24/2024 10:38 AM EDT [facility] Human Metapneumovirus A and B Not Detected Not Detected LAB MICROBIOLOGY METHOD 11/24/2024 10:38 AM EDT [facility] Rhinovirus/Entero virus Not Detected Not Detected LAB MICROBIOLOGY METHOD 11/24/2024 10:38 AM EDT [facility] Bordetella pertussis Not Detected Not Detected LAB MICROBIOLOGY METHOD 11/24/2024 10:38 AM EDT [facility] Bordetella parapertussis Not Detected Not Detected LAB MICROBIOLOGY METHOD 11/24/2024 10:38 AM EDT [facility] Mycoplasma pneumo by PCR Not Detected Not Detected LAB MICROBIOLOGY METHOD 11/24/2024 10:38 AM EDT [facility] Chlamydia pneumoniae Not Detected Not Detected LAB MICROBIOLOGY METHOD 11/24/2024 10:38 AM EDT [facility] SARS COV-2 Not Detected Not Detected LAB MICROBIOLOGY METHOD 11/24/2024 10:38 AM EDT [facility] Swab Both anterior nares / Unknown Non-blood Collection / Unknown 11/24/2024 8:52 AM EDT 11/24/2024 9:39 AM EDT [facility] - 11/24/2024 10:38 AM EDT Testing was performed using the [employer] Respiratory Pathogen PCR Assay. All results must [...] LAB MICROBIOLOGY - GENERAL ORDERABLES Final Result [facility] [address] [place] [address], [place] [phone] * Prothrombin time with INR (11/24/2024 5:36 AM EDT) Protime 12.1 10.6 - 13.9 sec LAB COAGULATION METHOD 11/24/2024 6:19 AM EDT [facility] INR 1.0 LAB COAGULATION METHOD 11/24/2024 6:19 AM EDT [facility] Blood Venous blood specimen / Unknown Venipuncture / Unknown 11/24/2024 5:36 AM EDT 11/24/2024 6:10 AM EDT us Rick Huddleston MD LAB BLOOD ORDERABLES Final Result [facility] [address] [place] [address], [place] [phone] * (ABNORMAL) Comprehensive metabolic panel (11/24/2024 5:36 AM EDT) Only the most recent of2 resultswithin the time period is included. Sodium 134 133 - 145 mmol/L LAB CHEMISTRY METHOD 11/24/2024 7:03 AM [facility] Potassium 3.3(L) 3.5 - 5.5 mmol/L LAB CHEMISTRY METHOD 11/24/2024 7:03 AM [facility] Chloride 98 96 - 110 mmol/L LAB CHEMISTRY METHOD 11/24/2024 7:03 AM [facility] CO2 27 21 - 32 mmol/L LAB CHEMISTRY METHOD 11/24/2024 7:03 AM [facility] Anion Gap 9 3 - 11 LAB CHEMISTRY METHOD 11/24/2024 7:03 AM [facility] Glucose 93 70 - 100 mg/dL LAB CHEMISTRY METHOD 11/24/2024 7:03 AM [facility] BUN 9 5 - 25 mg/dL LAB CHEMISTRY METHOD 11/24/2024 7:03 AM [facility] Creatinine 0.70 0.70 - 1.30 mg/dL LAB CHEMISTRY METHOD 11/24/2024 7:03 AM [facility] eGFR 110 >=60 mL/min/1. 73m2 LAB CHEMISTRY METHOD 11/24/2024 7:03 AM [facility] Comment:Calculation based on the Chronic Kidney Disease Epidemiology Collaboration (CKD-EPI) equation refit without adjustment for race. BUN/Creatinine Ratio 12.9 LAB CHEMISTRY METHOD 11/24/2024 7:03 AM [facility] Calcium 9.1 8.5 - 10.5 mg/dL LAB CHEMISTRY METHOD 11/24/2024 7:03 AM [facility] AST (SGOT) 203(H) 10 - 42 unit/L LAB CHEMISTRY METHOD 11/24/2024 7:03 AM [facility] ALT (SGPT) 91(H) 10 - 60 unit/L LAB CHEMISTRY METHOD 11/24/2024 7:03 AM [facility] Alkaline Phosphatase 115 42 - 121 unit/L LAB CHEMISTRY METHOD 11/24/2024 7:03 AM [facility] Total Protein 8.1(H) 6.0 - 8.0 g/dL LAB CHEMISTRY METHOD 11/24/2024 7:03 AM [facility] Albumin 3.8 3.2 - 5.0 g/dL LAB CHEMISTRY METHOD 11/24/2024 7:03 AM [facility] Total Bilirubin 0.9 0.0 - 1.4 mg/dL LAB CHEMISTRY METHOD 11/24/2024 7:03 AM [facility] Blood Venous blood specimen / Unknown Venipuncture / Unknown 11/24/2024 5:36 AM EDT 11/24/2024 6:10 AM EDT Sarah ESCALANTE LAB BLOOD ORDERABLES Final Resu lt [facility] [address] [place] [address], * (ABNORMAL) Drug abuse screen 8a panel, urine (11/23/2024 11:35 PM EDT) Amphetamine Screen, Ur Negative Negative LAB CHEMISTRY METHOD 12:15 AM [facility] Comment:Certain OTC medicati ons containing ephedrine, phenylephrine, pseudoephedrine and phenylpropanolamine can cause false positive results. Barbiturate Screen, Ur Positive(A ) Negative LAB CHEMISTRY METHOD 12:15 AM [facility] Benzodiazepine Screen, Ur Positive(A ) Negative LAB CHEMISTRY METHOD 5 12:15 AM EDT [facility] Cocaine Screen, Ur Negative Negative LAB CHEMISTRY METHOD 5 12:15 AM [facility] Opiate Screen, Ur Negative Negative LAB CHEMISTRY METHOD 5 12:15 AM [facility] Cannabinoid (THC) Screen, Ur Negative Negative LAB CHEMISTRY METHOD 5 12:15 AM EDT [facility] Comment:Specimens from patie nts taking pantoprazole sodium (Protonix) have been shown to produce false positive results. Oxycodone Screen, Ur Negative Negative LAB CHEMISTRY METHOD 5 12:15 AM [facility] Fentanyl, Ur Negative Negative LAB CHEMISTRY METHOD 5 12:15 AM [facility] Urine Urine specimen obtained by clean catch procedure / Unknown Non-blood Collection / Unknown 11/23/2024 11:35 PM EDT 11/23/2024 11:47 PM EDT Narrative [facility] - 11/24/2024 12:15 AM EDT [...] Huddleston MD LAB URINE ORDERABLES Final Result [facility]) [facility] [address] [place] [address], * Buprenorphine screen, urine (11/23/2024 11:35 PM EDT) [facility] Buprenorphine Screen Urine Negative Negative LAB CHEMISTRY METHOD 11/24/2024 12:15 AM EDT [facility] Urine Urine specimen obtained by clean catch procedure / Unknown Non-blood Collection / Unknown 11/23/2024 11:35 PM EDT 11/23/2024 11:47 PM EDT Narrative [facility] - 11/24/2024 12:15 AM EDT Assay cutoff 5 ng/mL Semi-quantitative assay for screening purposes only. Unconfirmed screening result should not be used for non-medical purposes. *ALTERNATE METHOD CONFIRMATION DONE UPON REQUEST ONLY* us Rick Huddleston MD LAB URINE ORDERABLES Final Result Performing Organization Address [facility] Co de Phone Number [facility] [address] [place] [address], [place] [phone] * Methadone, urine (11/23/2024 11:35 PM EDT) Methadone Screen, Urine Negative Negative LAB CHEMISTRY METHOD 11/24/2024 12:15 AM EDT [facility] Comment: Assay cutoff 300 ng/mL [...] URINE ORDERABLES Final Result Performing Organization Address City/[facility]/ZIP Co de Phone Number [facility] [address] [place] [address], [place] [phone] * Phencyclidine, urine (11/23/2024 11:35 PM EDT) PCP Scrn, Ur Negative Negative LAB CHEMISTRY METHOD 11/24/2024 12:15 AM EDT [facility] Comment: Assay cutoff 25 ng/mL [...] URINE ORDERABLES Final Result Performing Organization Address [facility] Co de Phone Number [facility] [address] [place] [address], [place] [phone] * Troponin I high sensitivity (11/23/2024 9:17 PM EDT) Only the most recent of2 resultswithin the time period is included. [facility] High Sensitivity Troponin I 7 <=79 ng/L LAB CHEMISTRY METHOD 11/23/2024 9:58 PM EDT [facility] Blood Venous blood specimen / Unknown Venipuncture / Unknown 11/23/2024 9:17 PM EDT 11/23/2024 9:22 PM EDT Narrative [facility] - 11/23/2024 9:58 PM EDT High levels of biotin in samples may falsely decrease hsTroponin values. Use caution when interpreting hsTroponin results in patients taking biotin who exhibit renal impairment (eGFR <60) or in patients taking more than 20 mg/day of biotin. us Rick Huddleston MD LAB BLOOD ORDERABLES Final Result Performing Organization Address [facility] Co de Phone Number [facility] [address] [place] [address], [place] [phone] * Lactate, with reflex (11/23/2024 8:13 PM EDT) [facility] LACTIC ACID 1.8 0.4 - 2.0 mmol/L LAB CHEMISTRY METHOD 11/23/2024 8:59 PM EDT [facility] Blood Venous blood specimen / Unknown Venipuncture / Unknown 11/23/2024 8:13 PM EDT 11/23/2024 8:20 PM EDT us Jasmine ESCALANTE LAB BLOOD ORDERABLES Fin al Result Performing Organization Address [facility]/ZIP Co de Phone Number [facility] [address] [place] [address], [place] [phone] * (ABNORMAL) Blood culture pathogens molecular study (11/23/2024 8:13 PM EDT) Staphylococcus species Detected (A) Not Detected LAB MICROBIOLOGY METHOD 11/25/2024 4:20 PM EDT [facility] Blood Venous blood specimen / Unknown Venipuncture / Unknown 11/23/2024 8:13 PM EDT 11/23/2024 8:21 PM EDT us Jasmine ESCALANTE LAB MICROBIOLOGY - GENER AL ORDERABLES Final Result Performing Organization Address [facility]/ZIP Co de Phone Number [facility] [address] [place] [address], [place] [phone] * CT Head wo Contrast (11/23/2024 7:53 [...] Signed Date: 11/23/2024 20:48 ET Workstation ID: [id number] Transcribed By: Self Edit Transcribed Date: 11/23/2024 [...] Signed Date: 11/23/2024 20:48 ET Workstation ID: [id number] Transcribed By: Self Edit Transcribed Date: 11/23/2024 20:47 ET us Jasmine ESCALANTE IMG XR PROCEDURES Final Result * ECG 12 lead (11/23/2024 4:58 PM EDT) Ventricular Rate ECG 78 BPM GEMUSE Atrial Rate 78 BPM GEMUSE P-R Interval 164 ms GEMUSE QRS Duration 90 ms GEMUSE Q-T Interval 424 ms GEMUSE QTc 483 ms GEMUSE R Valier 176 degrees GEMUSE T Valier -177 degrees GEMUSE ECG Interpretation Normal sinus [...] 4:58 PM EDT 11/24/2024 8:59 PM EDT us Lisseth Leary MD ECG ORDERABLES Final Re sult GEMUSE * Hepatitis panel, acute with reflex to confirmation (11/23/2024 4:58 PM EDT) Hepatitis B Surface Ag Negative Negative LAB CHEMISTRY METHOD 11/23/2024 10:17 PM EDT [facility] Hepatitis A Antibody IgM Negative Negative LAB CHEMISTRY METHOD 11/23/2024 10:17 PM EDT [facility] Hep B Core IgM Negative Negative LAB CHEMISTRY METHOD 11/23/2024 10:17 PM EDT [facility] Hepatitis C Antibody Negative Negative LAB CHEMISTRY METHOD 11/23/2024 10:17 PM EDT [facility] Blood Venous blood specimen / Unknown Venipuncture / Unknown 11/23/2024 4:58 PM EDT 11/23/2024 5:09 PM EDT us Rick Huddleston MD LAB BLOOD ORDERABLES Final Result Performing Organization Address [facility]/ZIP Co de Phone Number [facility] [address] [place] [address], [place] [phone] * Iron and TIBC (11/23/2024 4:58 PM EDT) Iron 106 50 - 160 mcg/dL LAB CHEMISTRY METHOD 11/23/2024 9:20 PM EDT [facility] TIBC 257 250 - 450 mcg/dL LAB CHEMISTRY METHOD 11/23/2024 9:20 PM EDT [facility] Iron Saturation 41 20 - 50 % LAB CHEMISTRY METHOD 11/23/2024 9:20 PM EDT [facility] Blood Venous blood specimen / Unknown Venipuncture / Unknown 11/23/2024 4:58 PM EDT 11/23/2024 5:09 PM EDT us Rick Huddleston MD LAB BLOOD ORDERABLES Final Result Performing Organization Address [facility]/ZIP Co de Phone Number [facility] [address] [place] [address], [place] [phone] * (ABNORMAL) Prolactin (11/23/2024 4:58 PM EDT) Prolactin 22.20(H) 2.50 - 17.40 ng/mL LAB CHEMISTRY METHOD 11/23/2024 5:48 PM EDT [facility] Blood Venous blood specimen / Unknown Venipuncture / Unknown 11/23/2024 4:58 PM EDT 11/23/2024 5:09 PM EDT Lisseth Leary MD LAB BLOOD ORDERABLES Fin al Result Performing Organization Address [facility]/ZIP Co de Phone Number [facility] [address] [place] [address], [place] [phone] * (ABNORMAL) Lipase (11/23/2024 4:58 PM EDT) Lipase 125(H) 13 - 75 unit/L LAB CHEMISTRY METHOD 11/23/2024 5:48 PM EDT [facility] Blood Venous blood specimen / Unknown Venipuncture / Unknown 11/23/2024 4:58 PM EDT 11/23/2024 5:09 PM EDT Lisseth Leary MD LAB BLOOD ORDERABLES Fin al Result Performing Organization Address [facility] Co de Phone Number [facility] [address] [place] [address], [place] [phone] * (ABNORMAL) Ethanol (11/23/2024 4:58 PM EDT) Ethanol Level 11(H) 0 - 10 mg/dL LAB CHEMISTRY METHOD 11/23/2024 5:48 PM EDT [facility] Blood Venous blood specimen / Unknown Venipuncture / Unknown 11/23/2024 4:58 PM EDT 11/23/2024 5:09 PM EDT Lisseth Leary MD LAB BLOOD ORDERABLES Fin al Result Performing Organization Address [facility]/ZIP Co de Phone Number [facility] [address] [place] [address], [place] [phone] * (ABNORMAL) Acetaminophen level (11/23/2024 4:58 PM EDT) Acetaminophen Level <2.0(L) 10.0 - 30.0 mcg/mL LAB CHEMISTRY METHOD 11/23/2024 6:19 PM EDT [facility] Blood Venous blood specimen / Unknown Venipuncture / Unknown 11/23/2024 4:58 PM EDT 11/23/2024 5:09 PM EDT Lisseth Leary MD LAB BLOOD ORDERABLES Fin al Result Performing Organization Address [facility] de Phone Number [facility] [address] [place] [address], [place] [phone] * Salicylate level (11/23/2024 4:58 PM EDT) Salicylate Level 2.0 2.0 - 29.0 mg/dL LAB CHEMISTRY METHOD 11/23/2024 5:48 PM EDT [facility] Blood Venous blood specimen / Unknown Venipuncture / Unknown 11/23/2024 4:58 PM EDT 11/23/2024 5:09 PM EDT Lisseth Leary MD LAB BLOOD ORDERABLES Fin al Result Performing Organization Address [facility] Phone Number [facility] [address] [place] [address], [place] [phone] * (ABNORMAL) POCT Glucose, blood (11/23/2024 4:54 PM EDT) Glucose POCT 157(H) 70 - 100 mg/dL 11/23/2024 5:03 PM EDT [facility] Blood Capillary blood specimen / Unknown 11/23/2024 4:54 PM EDT 11/23/2024 5:04 PM EDT us Generic Provider Poct LAB POINT OF CARE TEST DOCKED DEVICE UNSOLICITED RESULTS Final Result Performing Organization Address [facility] Co de Phone Number [facility] [address] [place] [address], [place] [phone] from Last 3 Months Insurance [facility] MEDICAID ADVANTAGE Advance Directives Documents on File Type Date Recorded Patient Automatic Print Developer Expl anation Health Care Decision (hx) 11/16/2022 [...] Dick Dickinson Health Care Agent Care Teams Subscription Agent Relationship Specialty Start Date End Date Physician, No Pcp PCP - General 11/23/24
[2025-01-28 13:29] VITALS: BP 136/80; PULSE 90; TEMP 36.6; O2SAT 97; BMI 24.4
--- NOTE | 2025-01-28 13:29 | MHC.OFFWIV ---
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 - The swelling is recurrent, resolving spontaneously without any interventions. - Denies any known inciting trauma. - The patient suspects gout due to dietary habits, including high red meat intake, and has a history of gout. - The knee exhibits morning tenderness, which decreases as the day progresses. Physical Exam General: Cooperative, healthy appearing, comfortable, no acute distress and well developed Orientation: Patient oriented x3 Limitations: No limitations Head: Normal to inspection Ears: Hearing grossly normal bilaterally Nose: Normal External nose present Face and sinus: Normal facial exam Eyes: Appearance normal, both eyes and all related structures Neck: Normal visual inspection and Yes full ROM Respiratory: Normal respiratory effort and able to speak in complete sentences. Skin: No rashes or lesions noted Neuro: Patient oriented x3 Extremities: Right knee with edema, NO TTP, no erythem or other skin changes. no joint laxity, no patellar ballottement. Full ROM. [facility] Medical History Alcohol abuse Dyslipidemia Hypertension Surgical History No pertinent past surgical history Social History Housing: Apartment Patient Tobacco Use Status: Former Tobacco user e-Cigarette/Vaping Use: Never Used Second Hand Smoke Exposure: No service: No Current occupational status: employed Current occupation: [employer] Current occupational exposures/hazards: No Cognitive needs: No Hearing needs: No Vision needs: No Review of Systems Const All systems reviewed & are unremarkable except as noted in HPI and below Physical Exam Vital Signs: Last Vital Signs Temp 97.8 F 01/28/25 13:29 Pulse 90 01/28/25 13:29 BP 136/80 01/28/25 13:29 Pulse Ox 97 01/28/25 13:29 Oxygen Delivery Method Room Air 01/28/25 13:29 BMI result Body Mass Index 24.4 Assessment & Plan Assessment & Plan (1) Swelling of right knee joint: Code(s): M25.461 - Effusion, right knee Plan: Plan - An x-ray of the right knee is planned to assess the underlying cause of the swelling. - my interpretation of the x-ray is no acute fracture or dislocation. The knee is not erythematous or tender at all so this is not likely gout. Is his likely some inflammation or swelling from arthritis. We Angel wrap the knee I told the patient to use some naproxen as needed for pain and follow up with his PCP if the pain continues. - we will call the patient with the final radiology read once the x-ray is read. Patient was informed and verbally consented to the use of an ambient scribe for clinic note documentation during this visit. Orders: Orders XR knee RT 4V Today M25.461 - Effusion, right knee Coding Level of Care Code Est Pt Level 4 (28123) Diagnoses Swelling of right knee joint M25.461
== END 2025-01-28 14:29 | disposition home or self-care (01) ==
PROVIDERS: PCP Nurse Practitioner Family; Visit Provider Physician Assistant
DX: M25.461 Effusion, right knee (principal)

== ENCOUNTER → 2025-01-28 14:00 | Outpatient (BNV) | payer OTHER, SELFPAY | PROVIDERS: PCP Nurse Practitioner Family; Visit Provider Radiology Diagnostic Radiology | DX: M25.461 Effusion, right knee (principal) | CPT/HCPCS: 73564 ==

== ENCOUNTER 2025-04-18 10:12 | Outpatient (REF) | payer OTHER, SELFPAY ==
--- NOTE | ~2025-04-18 | XR_ITS ---
EXAMINATION: XR KNEE, RIGHT CLINICAL INFORMATION: M25.561 - Pain in right knee COMPARISON: None available. TECHNIQUE: AP and lateral views of the right knee. FINDINGS: Minimal joint fluid is noted. There is minimal narrowing of the medial and lateral joint spaces. There are small osteophytes involving intercondylar tubercles and lateral femoral condyle. XR/XR knee RT 2V IMPRESSION: Minimal osteoarthritis and small volume of joint fluid is present. Electronically signed by: Dom Duarte MD 04/18/2025 11:18 AM PAMELA
== END 2025-04-18 10:13 | disposition home or self-care (01) ==
LOC: HO.HMGCX 10:12
PROVIDERS: PCP Nurse Practitioner Family; Visit Provider Nurse Practitioner Family
DX: M25.561 Pain in right knee (principal); M25.461 Effusion, right knee; R68.83 Chills (without fever); I10 Essential (primary) hypertension
CPT/HCPCS: 73560; 96127

== ENCOUNTER 2025-04-18 10:12 | Outpatient (AMB) | payer OTHER, SELFPAY ==
[2025-04-18 10:19] VITALS: BP 126/90; PULSE 88; RESP 14; TEMP 37; O2SAT 98; BMI 23.3
--- NOTE | 2025-04-18 10:19 | MHC.PC.OV ---
Vital Signs 04/18/25 10:19 04/18/25 11:00 Height 5 ft 9 in Weight 158 lb BMI 23.3 BP 126/90 H 124/86 Blood Pressure Location Lt brachial Lt brachial Position Sitting Sitting Respiration 14 Pulse 88 Pulse Source Pulse Oximeter Temp 98.6 F Temp Source Oral Pulse Oximetry (%) 98 Intake Visit Reasons: 6 months f/up Access Nurse Required: No Accompanied by: Self / Same As Patient Allergies No Known Allergies Allergy (Verified 04/18/25 10:22) Medication List - Last Reconciled 04/18/25 by Rick Mireles, [facility]- amlodipine 10 mg PO DAILY docusate sodium 100 mg PO BEDTIME losartan 100 mg PO DAILY meloxicam 7.5 mg PO DAILY PRN 30 days metoprolol succinate ER 100 mg PO DAILY naproxen 500 mg PO Q12H PRN 10 days Tobacco use date assessed: 04/18/25 Dental Screening Dental Screen Date: 04/18/25 Did you have a dental visit in the last 12 months?: Yes Did you have a dental problem in the last 6 months where you did not have access to dental care?: No Was dental information given to patient?: Patient has dentist HPI 6 months f/up HPI Details Chief Complaint Patient reports ongoing right knee pain with some swelling. History of Present Illness The patient is a 54-year-old male presenting with ongoing right knee pain. He reports intermittent swelling and faint redness associated with the pain. He has a history of a joint effusion in the same knee, which was noted on a previous x-ray. The patient also reports episodes that sound like chills, which he describes as quick shaking while watching TV. These episodes occur without loss of consciousness, falling, or foaming from the mouth. Social History - The patient mentions a significant other. Health Maintenance Review of Systems - Musculoskeletal: Reports ongoing right knee pain. - Constitutional: Reports intermittent swelling of the right knee, faint redness, and episodes of chills described as quick shaking. - Neurological: Denies loss of consciousness, falls, or seizure-like activity during shaking episodes. Physical Exam General: Cooperative, healthy appearing, comfortable, no acute distress and well developed Orientation: Patient oriented x3 Limitations: No limitations Head: Normal to inspection Ears: Hearing grossly normal bilaterally Nose: Normal external nose present Face and sinus: Normal facial exam Eyes: Appearance normal, both eyes and all related structures Neck: Normal visual inspection and Yes full ROM Respiratory: Normal respiratory effort and able to speak in complete sentences. Clear to auscultation bilaterally Cardiovascular: Regular rate and rhythm. Normal S1 and S2 GI: Normal to inspection. Soft to palpation and nontender Skin: No rashes or lesions noted Neuro: Patient oriented x3 Extremities: Right knee with some swelling and faint redness intermittently. Negative Melissa's and Katharina's test. Crepitus on extension and inflection without pain. Dorsalis pedis pulse present. Normal to inspection otherwise. Results - Imaging: A previous x-ray of the right knee showed a joint effusion. Plan 1. Right Knee Pain The patient presents with ongoing right knee pain, intermittent swelling, and faint redness, with a history of joint effusion. Physical exam revealed crepitus on movement but was negative for ligamentous or meniscal injury via Melissa's and Katharina's tests. A repeat x-ray will be ordered, and the patient will be referred to physical therapy, with a subsequent referral to orthopedics. 2. Chills The patient reports episodes of quick shaking without loss of consciousness or other seizure-like activity, which are assessed to be chills. The plan is to continue monitoring, and the patient has been advised to follow up for any worsening of symptoms or to seek urgent medical care if necessary. 3. htn: stable Discussion Notes I have discussed the patient's ongoing right knee pain. I explained the plan to repeat his x-ray, refer him to physical therapy, and then have him see an orthopedist. I also addressed his report of shaking episodes, explaining that they appear to be chills rather than seizures, and that we will continue to monitor them. He understands to follow up with me for any worsening symptoms. Patient Instructions - We will get a repeat x-ray of your right knee. - You will be referred to physical therapy for your knee. - After physical therapy, you will need to see an duplication specialist. - Continue to monitor the episodes of shaking or chills. - Follow up with me or seek medical care if your symptoms get worse. [facility] Medical History Alcohol abuse Dyslipidemia Hypertension Surgical History No pertinent past surgical history Social History Housing: Apartment Patient Tobacco Use Status: Former Tobacco user e-Cigarette/Vaping Use: Never Used Second Hand Smoke Exposure: No service: No Current occupational status: employed Current occupation: [employer] Current occupational exposures/hazards: No Cognitive needs: No Hearing needs: No Vision needs: No Questionnaire PHQ-9 Over the last 2 weeks, how often have you been bothered by any of the following problems? 1. Little interest or pleasure in doing things: not at all 2. Feeling down, depressed, or hopeless: not at all 3. Trouble falling or staying asleep, or sleeping too much: not at all 4. Feeling tired or having little energy: not at all 5. Poor appetite or overeating: not at all 6. Feeling bad about yourself - or that you are a failure or have let yourself or your family down: not at all 7. Trouble concentrating on things, such as reading the newspaper or watching television: not at all 8. Moving or speaking so slowly that other people could have noticed. Or the opposite - being so fidgety or restless that you have been moving around a lot more than usual: not at all 9. Thoughts that you would be better off or of hurting yourself in some way: not at all Total score: 0 Depression Screening Interpretation: Negative Depression Screening Done: Yes 56203 - PHQ-9 Billing: Yes Source: Developed by Drs. Jeff Cooney, Liza Marrero, Gilbert Valverde and colleagues, with an educational timo from [email or web address]. Thrive Questionnaire Date Thrive assessed: 10/13/24 ESTHELA-7 AMB Questionnaire ESTHELA-7 Date ESTHELA - 7 assessed: 04/18/25 Feeling nervous, anxious, or on edge: 0 = Not at all Not being able to stop or control worryin = Not at all Worrying too much about different things: 0 = Not at all Trouble relaxin = Not at all Being so restless that it is hard to sit still: 0 = Not at all Becoming easily annoyed or irritable: 0 = Not at all Feeling afraid as if something awful might happen: 0 = Not at all Total ESTHELA-7 score (0-4 normal; 5-9 mild; 10-14 moderate; 15-21 severe): 0 Source: Developed by Drs. Jeff Cooney, Liza Marrero, Gilbert Valverde and colleagues, with an educational timo from [email or web address]. ESTHELA-7 Assessment Billing ESTHELA-7 Assessment Tool: ESTHELA-7 Assessment 02129 Physical exam (Primary Care) Vital Signs: Last Vital Signs Temp 98.6 F 04/18/25 10:19 Pulse 88 04/18/25 10:19 Resp 14 04/18/25 10:19 BP 126/90 H 04/18/25 10:19 Pulse Ox 98 04/18/25 10:19 BMI result Body Mass Index 23.3 Tobacco/Smoking Status: Tobacco use Status Tobacco use date assessed 04/18/25 04/18/25 10:26 Patient Tobacco Use Status Former Tobacco user 04/18/25 10:26 e-Cigarette/Vaping Use Never Used 04/18/25 10:26 PHQ-9: PHQ-9 Score PHQ-9: Total score 0 04/18/25 10:26 Depression Screening Interpretation: Negative Thrive Assessment: Date of Thrive Assessment Date Thrive assessed 10/13/24 04/18/25 10:26 Coding Level of Care Code Est Pt Level 3 (86428) Diagnoses Right knee pain M25.561 Hypertension I10 Additional Codes ESTHELA-7 Assessment Billing - ESTHELA-7 Assessment Tool: ESTHELA-7 Assessment 21902 ([id number]) PHQ-9 - 31411 - PHQ-9 Billing: Yes ([id number]) Assessment & Plan Assessment & Plan (1) Right knee pain: Code(s): M25.561 - Pain in right knee Category: Medical (2) Hypertension: Code(s): I10 - Essential (primary) hypertension Category: Medical Plan . Orders: Orders PT Evaluation and Treatment Today M25.561 - Pain in right knee Comprehensive [place]. Panel Fast Today I10 - Essential (primary) hypertension, M25.561 - Pain in right knee TSH reflex Free T4 Today I10 - Essential (primary) hypertension, M25.561 - Pain in right knee UA CC w/rflx Micro + Cult Today I10 - Essential (primary) hypertension, M25.561 - Pain in right knee Lipid Panel Today I10 - Essential (primary) hypertension, M25.561 - Pain in right knee XR knee RT 2V Today M25.561 - Pain in right knee Complete Blood Count Auto Diff Today I10 - Essential (primary) hypertension, M25.561 - Pain in right knee
[2025-04-18 11:00] VITALS: BP 124/86
--- OUTSIDE RECORDS SUMMARY | 2025-04-18 12:13 | XMS_ITS | Clinical Summary ---
Author Organization [facility] Address [address] [place] [address] Phone Care Team Providers Care Lobby Concierge Name Role Phone Physician, No Pcp Primary [...] Date Alcohol withdrawal seizure w ithout complication ([facility] V24, [facility] V28) 11/23/2024 11/26/2024 Surgical History Surgery Date Site/Laterality Comments KNEE [...] care for your loved ones. For example, children counselor or elderly care for an older adult? [...] Date Recorded What is your living situation? Unrecognized valu e 11/24/2024 Interpersonal Safety Answer Date Record ed Physical Abuse Unrecognized value 11/24/2024 Verbal Abuse Unrecognized value 11/24/2024 Sex and Gender Information Value Date [...] Health Maintenance Due Date Last Done Comments Colorectal Cancer Screening: Colonoscopy 1971 DTaP,Tdap,and Td Vaccines (1 - Tdap) 10/09/1990 Hepatitis A Vaccines (1 of 2 - Risk 2-dose series) 10/09/1990 Hepatitis B Vaccines (1 of 3 - 19+ 3-dose series) 10/09/1990 Pneumococcal Vaccine: 50+ Years (1 of 2 - PCV) 10/09/1990 Zoster Vaccines (1 of 2) 10/09/2021 Cholesterol Screening (Lipid Panel) 05/14/2022 HIV Screening 05/14/2022 Depression Screening 06/16/2024 COVID-19 Vaccine (3 - 2024-2 6 season) 2025 11/01/2020, 10/11/2020 Influenza Vaccine (#1) 2025 Social Influencers of Health Screening 11/24/2025 11/24/2024 RSV Immunization Adult Patients (1 - 1-dose 75+ series) 10/09/2046 Hepatitis C Screening Completed 11/23/2024 HIB Vaccines [...] Procedure Name Priority Date/Time Associated Diagnosis Comments HEPATITIS PANEL, ACUTE WITH REFLEX TO CONFIRMATION Add-On 11/23/2024 4:58 PM EDT from Last 3 Months or Most Recently Relevant to Health Maintenance Results * Hepatitis panel, acute with reflex to confirmation (11/23/2024 4:58 PM EDT) Hepatitis B Surface Ag Negative Negative LAB CHEMISTRY METHOD 11/23/2024 10:17 PM EDT [facility] Hepatitis A Antibody IgM Negative Negative LAB CHEMISTRY METHOD 11/23/2024 10:17 PM EDT [facility] Hep B Core IgM Negative Negative LAB CHEMISTRY METHOD 11/23/2024 10:17 PM EDT [facility] Hepatitis C Antibody Negative Negative LAB CHEMISTRY METHOD 11/23/2024 10:17 PM EDT [facility] Blood Venous blood specimen / Unknown Venipuncture / Unknown 11/23/2024 4:58 PM EDT 11/23/2024 5:09 PM EDT us Rick Huddleston MD LAB BLOOD ORDERABLES Final Result [facility] [address] [place] [address], from Last 3 Months or Most Recently Relevant to Health Maintenance Insurance [facility] MEDICAID ADVANTAGE Advance Directives Documents on File Type Date Recorded Patient Director International Expl anation Health Care Decision (hx) 11/16/2022 AD BYNUM DIRECTIVE Health Care Decision (hx) 11/16/2022 Rigo Dickinson AD BYNUM DIRECTIVE * Full Code [...] Name Relationship Healthcare Agent Relationshi p Communication Rigo Dickinson Health Care Agent Care Teams Lobby Concierge Relationship Specialty Start Date End Date Physician, No Pcp PCP - General 11/23/24
== END 2025-04-18 11:03 | disposition home or self-care (01) ==
LOC: HO.HMCC 10:12
PROVIDERS: PCP Nurse Practitioner Family; Visit Provider Nurse Practitioner Family
DX: M25.561 Pain in right knee (principal); I10 Essential (primary) hypertension

== ENCOUNTER → 2025-04-18 11:08 | Outpatient (BNV) | payer OTHER, SELFPAY | PROVIDERS: PCP Nurse Practitioner Family; Visit Provider Radiology Diagnostic Radiology | DX: M25.561 Pain in right knee (principal) | CPT/HCPCS: 73560 ==

== ENCOUNTER 2025-04-29 14:50 | Outpatient (AMB) | payer OTHER, SELFPAY ==
--- NOTE | 2025-04-29 14:52 | MHC.OFFWIV ---
Intake Vital Signs 04/29/25 14:53 Height 5 ft 9 in Weight 159 lb BMI 23.5 BP 120/80 Blood Pressure Location Rt brachial Position Sitting Pulse 102 H Pulse Source Pulse Oximeter Temp 98.2 F Pulse Oximetry (%) 96 Oxygen Delivery Method Room Air Intake Visit Reasons: EP-rt wrist pain & swollen Intake Note: Patient presents c/o burning right wrist pain & swelling, numbness/tingling in thumb joint & pinky finger - ongoing for a few years, keeps going away and coming back. Patient Tobacco Use Status: Former Tobacco user Allergies No Known Allergies Allergy (Verified 04/29/25 14:56) HPI HPI Comments History of Present Illness Details This is a 54-year-old right hand dominant male presenting for evaluation of right wrist pain and swelling that he has had for the past 2 days. Patient states that this is a recurring problem over the past 3 years. Patient denies having any fevers, chills, injury or trauma preceding the onset of his symptoms. Patient states that he recently had similar symptoms in his right knee. Patient has not been taking any pain medication or anti-inflammatories for management of his symptoms. Patient states that he has pain at rest that is worse with flexion and extension of his right wrist. [facility] Medical History Alcohol abuse Dyslipidemia Hypertension Surgical History No pertinent past surgical history Social History Housing: Apartment Patient Tobacco Use Status: Former Tobacco user e-Cigarette/Vaping Use: Never Used Second Hand Smoke Exposure: No service: No Current occupational status: employed Current occupation: [employer] Current occupational exposures/hazards: No Cognitive needs: No Hearing needs: No Vision needs: No Review of Systems Const Denies chills, Denies fatigue and Denies fever(s) Musc Reports arthralgias (right wrist), Reports joint swelling (right wrist), Reports limited range of motion (right wrist), Denies numbness and Denies tingling Skin/Breast Reports system reviewed and no additional complaints, except as documented, Denies lesions, Denies new lesions, Denies erythema and Denies skin pain Neuro Reports no additional complaints, Denies burning sensations, Denies numbness and Denies tingling Psych Reports no additional complaints Endo Denies fatigue Physical Exam Vital Signs: Last Vital Signs Pulse 102 H 04/29/25 14:53 BP 120/80 04/29/25 14:53 Pulse Ox 96 04/29/25 14:53 Oxygen Delivery Method Room Air 04/29/25 14:53 BMI result Body Mass Index 23.5 Const General: cooperative, healthy appearing, comfortable, no acute distress, well developed, alert, awake, Physically active and well groomed; No acute distress Nutritional Appearance: average body habitus Orientation/consciousness: patient oriented x3 Limitations: no limitations Skin Other: There is no erythema of the right wrist or right hand, no evidence of lymphangitis, mild warmth to palpation of the right dorsal wrist General skin exam: no rashes or lesions noted Neuro General: patient oriented x3 and Normal light touch and pain sensation (right hand and right wrist) Extrem Right upper extremity: normal capillary refill and wrist Details: tenderness (dorsal distal radius and anatomical snuffbox) Location: of the distal radius and of the anatomic snuffbox, abnormal ROM Details: pain with active ROM during Details: with extension and with flexion, warmth (mild warmth to touch dorsal right wrist), normal vascular exam and radial pulse present; no abrasions, no lacerations, no ecchymosis and no deformity; abnormal to inspection, ROM limited and joint enlargement noted Psych Appearance: grossly normal Mental Status: mental status grossly normal Insight: Good insight present (Psych) Judgement: Good judgement present (Psych) Assessment & Plan Assessment & Plan (1) Right wrist pain: Comment: Given this patient's history coupled with his examination, he has a recurrent arthropathy, 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 There is no evidence of a cellulitis or septic arthritis at this time. Patient will be discharged home with indomethacin to take 3 times daily with food. Patient is encouraged to follow up with his primary care provider for ongoing evaluation and management of his recurrent arthropathy. Code(s): M25.531 - Pain in right wrist Plan: Indomethacin 50 mg t.i.d. until pain resolves. Follow up with PCP within 2 weeks for a re-evaluation of your symptoms. Coding Level of Care Code Est Pt Level 3 (71598) Diagnoses Right wrist pain M25.531 Time Spent (min) 20
[2025-04-29 14:53] VITALS: BP 120/80; PULSE 102; TEMP 36.8; O2SAT 96; BMI 23.5
--- OUTSIDE RECORDS SUMMARY | 2025-04-29 22:22 | XMS_ITS | Clinical Summary ---
Author Organization [facility] Address [address] [place] [address] Phone Care Team Providers Care Bedspread Cutter Hand Name Role Phone Physician, No Pcp Primary [...] Date Alcohol withdrawal seizure w ithout complication ([facility] V24, [facility] V28) 11/23/2024 11/26/2024 Surgical History Surgery Date [...] for your loved ones. For example, director maternal child or elderly care for an older adult? [...] ORDERABLES Final Result [facility] [address] [place] [address], from Last 3 Months or Most Recently Relevant to Health Maintenance Insurance [facility] MEDICAID ADVANTAGE [address] [place] [address] Advance Directives Documents on File Type Date Recorded Patient Vice President Of Compliance Expl anation Health Care Decision (hx) 11/16/2022 AD BYNUM DIRECTIVE Health Care Decision (hx) 11/16/2022 Rigo Alok AD BYNUM DIRECTIVE * Full Code - [...] Rigo Dickinson Health Care Agent Care Teams Bedspread Cutter Hand Relationship Specialty Start Date End Date Physician, No Pcp PCP - General 11/23/24
== END 2025-04-29 15:27 | disposition home or self-care (01) ==
PROVIDERS: PCP Nurse Practitioner Family; Visit Provider Physician Assistant
DX: M25.531 Pain in right wrist (principal)